=== PATIENT | male | born 1955 | race Caucasian/White ===

== ENCOUNTER 2017-03-16 08:47 | Inpatient (IN) | payer OTHER ==
[~2017-03-16] VITALS: Ht 198.1 cm; Wt 93.9 kg
--- NOTE | 2017-03-16 09:15 | DIAGNOSTIC IMAGING REPORT ---
HEAD WITHOUT CONTRAST (CT) CT DOSE: 1241.21 mGy.cm HISTORY: Mental status change stroke TECHNIQUE: Multiaxial CT images of the head were performed without the use of intravenous contrast. A dose lowering technique was utilized adhering to the principles of ALARA. Comparison: None. Findings: The paranasal sinuses and mastoid air cells are clear. The calvarium and skull base are intact. The ventricles and sulci are within normal limits. There is no mass, hematoma, midline shift, or acute infarct. Impression: No acute intracranial abnormality. The above report was generated using voice recognition software. It may contain grammatical, syntax or spelling errors. Electronically signed by: Alessandro Lopez M.D. 03/16/2017 9:13 AM Dictated Date/Time: 03/16/2017 9:12 AM
--- NOTE | 2017-03-16 09:17 | DIAGNOSTIC IMAGING REPORT ---
CERVICAL SPINE W/O CT DOSE: HISTORY: Trauma unresponsive found on ground TECHNIQUE: Multiaxial CT images of the cervical spine were performed and reformatted in the sagittal and coronal plane without the use of contrast. A dose lowering technique was utilized adhering to the principles of ALARA. COMPARISON: None. FINDINGS: Degenerative disc change throughout the entire cervical region. Vertebral body stature is normal. Degenerative change of the C1-C2 complex. No acute compression deformity. Posterior elements are intact. IMPRESSION: Degenerative change. No acute process. The above report was generated using voice recognition software. It may contain grammatical, syntax or spelling errors. Electronically signed by: Alessandro Lopez M.D. 03/16/2017 9:16 AM Dictated Date/Time: 03/16/2017 9:14 AM
--- NOTE | 2017-03-16 09:24 | DIAGNOSTIC IMAGING REPORT ---
CHEST ONE VIEW PORTABLE HISTORY: 61 years-old Male STROKE ALERT acute stroke-like symptoms COMPARISON: None available TECHNIQUE: Portable upright AP view of the chest FINDINGS: Cardiac silhouette is mildly enlarged. Pulmonary vascular congestion without overt pulmonary edema. No pneumothorax, pleural effusion, focal airspace consolidation or overt pulmonary edema. Hazy left basilar opacities suggest atelectasis. Advanced degenerative changes of the right shoulder. Bones are grossly intact. IMPRESSION: Cardiomegaly and pulmonary vascular congestion without acute cardiopulmonary process. The above report was generated using voice recognition software. It may contain grammatical, syntax or spelling errors. Electronically signed by: Celestine Hugo M.D. 03/16/2017 9:23 AM Dictated Date/Time: 03/16/2017 9:21 AM
[2017-03-16] MEDS ORDERED: SET 2260-0500 IV ONE (09:30)
[2017-03-16] MEDS ORDERED: ALTEPLASE IV SCH ×2 (09:30)
[2017-03-16] MEDS ORDERED: RECOMBINANT IV SCH ×2 (09:30)
[2017-03-16 09:39] LABS: BASO % 0.3 %; BASO ABS # 0.02 K/uL (0-0.2); COMPLETE YES; EOS % 3.3 %; IG% 0.3 %; LYMPH % 21.1 %; LYMPH ABS # 1.58 K/uL (1.2-3.4); MEAN CELL VOLUME 80.8 fL (80-100); MEAN CORPUSCULAR HEMOGLOBIN 27.4 pg (25-34); MEAN CORPUSCULAR HGB CONC 33.9 g/dl (32-36); MEAN PLATELET VOLUME 9.9 fL (7.4-10.4); MONO % 6.6 %; NEUT % 68.4 %; PLATELET COUNT 264 K/uL (130-400); RED BLOOD COUNT 5.69 M/uL (4.7-6.1); WHITE BLOOD COUNT 7.48 K/uL (4.8-10.8)
[2017-03-16 09:48] LABS: PROTHROMBIN TIME (PATIENT) 10.5 SECONDS (9.0-12.0)
[2017-03-16 09:54] LABS: ARTERIAL BLD GAS O2 SATURATION 95.9 % (90-95); ARTERIAL BLOOD GAS BASE EXCESS 1.2 mEq/L (-9-1.8); ARTERIAL BLOOD GAS HCO3 25 mmol/L (19-24); ARTERIAL BLOOD GAS PO2 78 mm/Hg (80-95); ARTERIAL BLOOD GAS pH 7.44 (7.35-7.45)
[2017-03-16 10:00] LABS: ALLEN TEST POS (POS); O2 ADMINISTRATION ROOM AIR
[2017-03-16 10:03] LABS: BLOOD UREA NITROGEN 14 mg/dl (7-18); BUN/CREATININE RATIO 14.7 (10-20); CARBON DIOXIDE 27 mmol/L (21-32); CHLORIDE 105 mmol/L (98-107); CREATININE 0.97 mg/dl (0.60-1.40); GLUCOSE 102 mg/dl (70-99); POTASSIUM 4.4 mmol/L (3.5-5.1); SODIUM 137 mmol/L (136-145)
[2017-03-16 10:08] LABS: CKMB/CK RATIO 1.9 (0-3.0)
[2017-03-16] MEDS ORDERED: IBUP-1050 PO (10:23)
[2017-03-16] MEDS ORDERED: ACET-1311 PO (10:23)
[2017-03-16] MEDS ORDERED: VNTHFA/IN INH (10:23)
--- NOTE | 2017-03-16 10:28 | EMERGENCY ROOM VISIT NOTE ---
History Report prepared by Susi: Tegan Pizano Under the Supervision of: Dr. Guerrero Larson M.D. First contact with patient: 08:50 Chief Complaint: STROKE SYMPTOMS Stated Complaint: STROKE ALERT History of Present Illness The patient is a 61 year old male who presents to the Emergency Room with a persistent altered mental status that began several hours ago. Per EMS the patient was last known well at 0600 this morning. EMS reports that the patient was found unresponsive and altered at work this morning. EMS states that they were summoned to the area and the patient was brought to the emergency department. EMS states that the patient periodically awakens in a startled state. They note that the patient tried talking some. EMS provides no further information. The history is limited secondary to the patient's altered mental status. Source of History: patient History Limited By: AMS Onset: several hours ago Position: other (global) Quality: other (altered mental status) Timing: other (persistent) Review of Systems The history and ROS limited secondary to the patient's altered mental status. Past Medical & Surgical Medical Problems: (1) Cardiac arrest (2) LOC (loss of consciousness) (3) Stroke (4) Stroke Family History No pertinent family history stated. Social History Smoking Status: Unknown if Ever Smoked Marital Status: single Housing Status: lives with family Occupation Status: employed Current/Historical Medications Scheduled PRN Acetaminophen (Tylenol), 650 MG PO UD PRN for Pain Albuterol Hfa (Ventolin Hfa), 2-4 PUFFS INH Q6H PRN for SOB/Wheezing Ibuprofen (Advil), 1 DOSE PO UD PRN for Pain Allergies Coded Allergies: No Known Allergies (Unverified , 03/16/17) Physical Exam Vital Signs Date Time Temp Pulse Resp B/P (MAP) Pulse Ox O2 Delivery O2 Flow Rate FiO2 03/16/17 11:38 63 20 159/83 98 Room Air 03/16/17 11:07 56 20 166/82 97 Room Air 03/16/17 10:44 52 16 140/83 96 Room Air 03/16/17 10:20 55 16 161/84 96 03/16/17 09:53 56 16 150/89 95 Room Air 03/16/17 09:40 58 16 136/85 95 03/16/17 09:36 58 18 149/85 96 Room Air 10/23/17 09:31 58 16 163/86 95 Room Air 03/16/17 09:24 58 18 145/85 95 Room Air 03/16/17 09:17 Room Air 03/16/17 09:07 70 03/16/17 08:58 68 16 164/90 95 Room Air Physical Exam GENERAL: Awake, periodically looking around the room, follows some commands. HEENT: No acute trauma, normocephalic atraumatic, mucous membranes moist, no nasal congestion, no scleral icterus. NECK: No stridor, no adenopathy, no meningismus, trachea is midline. LUNGS: No dyspnea. Clear to auscultation and equal bilaterally. No wheeze, no rhonchi. HEART: Regular rate and rhythm. No murmurs, rubs, gallops appreciated. ABDOMEN: Soft, nontender, bowel sounds positive, no masses appreciated, no peritonitis. BACK: No midline tenderness, no CVA tenderness EXTREMITIES: Moderate right shoulder tenderness to palpation and limited range of motion. Normal motion all extremities, no cyanosis, no edema. NEUROLOGIC: Awake, periodically looking around the room, follows some commands. Weakly grabs with left hand, left facial droop, cannot move left arm, not speaking SKIN: No rash, no jaundice, no diaphoresis. Medical Decision & Procedures ER Provider Diagnostic Interpretation: Radiology results and stated below per my review and radiologist interpretation: CHEST ONE VIEW PORTABLE HISTORY: 61 years-old Male STROKE ALERT acute stroke-like symptoms COMPARISON: None available TECHNIQUE: Portable upright AP view of the chest FINDINGS: Cardiac silhouette is mildly enlarged. Pulmonary vascular congestion without overt pulmonary edema. No pneumothorax, pleural effusion, focal airspace consolidation or overt pulmonary edema. Hazy left basilar opacities suggest atelectasis. Advanced degenerative changes of the right shoulder. Bones are grossly intact. IMPRESSION: Cardiomegaly and pulmonary vascular congestion without acute cardiopulmonary process. The above report was generated using voice recognition software. It may contain grammatical, syntax or spelling errors. Electronically signed by: Celestine Hugo M.D. 03/16/2017 9:23 AM Dictated Date/Time: 03/16/2017 9:21 AM CERVICAL SPINE W/O CT DOSE: HISTORY: Trauma unresponsive found on ground TECHNIQUE: Multiaxial CT images of the cervical spine were performed and reformatted in the sagittal and coronal plane without the use of contrast. A dose lowering technique was utilized adhering to the principles of ALARA. COMPARISON: None. FINDINGS: Degenerative disc change throughout the entire cervical region. Vertebral body stature is normal. Degenerative change of the C1-C2 complex. No acute compression deformity. Posterior elements are intact. IMPRESSION: Degenerative change. No acute process. The above report was generated using voice recognition software. It may contain grammatical, syntax or spelling errors. Electronically signed by: Alessandro Lopez M.D. 03/16/2017 9:16 AM Dictated Date/Time: 03/16/2017 9:14 AM (CHEST) THORAX WITH CT DOSE: HISTORY: Trauma. Pain. fall, ams, unknown trauma TECHNIQUE: Multiaxial CT images of the chest were performed following the intravenous administration of contrast. A dose lowering technique was utilized adhering to the principles of ALARA. COMPARISON: None. FINDINGS: Mild nonspecific interstitial prominence. No focal infiltrate. Thoracic aorta is normal in course and caliber. Old fracture left second rib. No acute bony abnormality. Mild dependent basilar atelectasis. IMPRESSION: No significant abnormality identified within the chest. Mild chronic interstitial change. Old healed fracture left second rib. The above report was generated using voice recognition software. It may contain grammatical, syntax or spelling errors. Electronically signed by: Alessandro Lopez M.D. 03/16/2017 10:47 AM Dictated Date/Time: 03/16/2017 10:42 AM HEAD ANGIO WITH CONTRAST HISTORY: 61 years-old Male presents with acute left-sided weakness and acute strokelike symptoms. COMPARISON: CT head 03/16/2017 TECHNIQUE: CTA of the head was obtained following the intravenous administration of 120 mL Optiray 320. 3-D coronal and sagittal MIPS were obtained from the axial data set and were submitted for review. All measurements were made according NASCET criteria. A dose lowering technique was used consistent with the principals of ALARA. FINDINGS: The imaged bilateral internal carotid, middle cerebral, anterior cerebral, and anterior communicating arteries are patent. Imaged bilateral vertebral arteries, basilar artery and imaged posterior cerebral arteries are patent. No high-grade stenosis, aneurysm, proximal branch occlusion or dissection. The imaged cerebral venous sinuses also appear patent. No abnormal intra-axial or extra-axial enhancement identified. Mild to moderate mucosal thickening of the maxillary, ethmoid and inferior frontal sinuses. Mastoid air cells and middle ear cavities are clear. No calvarial fracture. IMPRESSION: Unremarkable CTA of the head without high-grade stenosis, proximal branch occlusion, aneurysm or dissection identified. The above report was generated using voice recognition software. It may contain grammatical, syntax or spelling errors. Electronically signed by: Celestine Hugo M.D. 03/16/2017 10:46 AM Dictated Date/Time: 03/16/2017 10:40 AM NECK ANGIO WITH CONTRAST HISTORY: Mental status change weakness TECHNIQUE: Multiaxial CT images of the neck were performed following the intravenous administration of contrast to evaluate the major cervical vessels. Maximum intensity projection images were also obtained. All measurements were calculated based on NASCET criteria. A dose lowering technique was utilized adhering to the principles of ALARA. COMPARISON STUDY: None. FINDINGS: The aortic arch and proximal great vessels are widely patent. There is no significant stenosis, occlusion, or dissection identified within the bilateral common carotid, internal carotid, or vertebral arteries. Mild scattered plaque dimension bilaterally IMPRESSION: No significant stenosis, occlusion, or dissection identified within the carotid or vertebral arteries. Mild scattered plaque formation bilaterally The above report was generated using voice recognition software. It may contain grammatical, syntax or spelling errors. Electronically signed by: Alessandro Lopez M.D. 03/16/2017 10:39 AM Dictated Date/Time: 03/16/2017 10:34 AM The status of this report is Signed. Draft = Not yet reviewed or approved by Radiologist. Signed = Reviewed and approved by Radiologist. ABD/PELVIS IV CONTRAST ONLY HISTORY: 61 years-old Male fall, ams, unknown trauma acute left-sided weakness with acute strokelike symptoms. Unknown history of trauma. COMPARISON: CT chest of same day TECHNIQUE: Multiple axial CT images of the abdomen and pelvis were obtained following the intravenous administration of 120 mL Optiray 320. A dose lowering technique was used consistent with the principals of ALARA. FINDINGS: Studies mildly limited secondary to be beam hardening artifact from placement of patient's arms. Dependent groundglass opacities suggest atelectasis. No pneumoperitoneum identified. Imaged inferior cardiac chambers are moderately enlarged. The liver, spleen, pancreas, and adrenal glands are within normal limits. There are a few small gallstones seen within the fundal gallbladder lumen. No CT evidence of cholecystitis. There is a 3 mm nonobstructing calculus of the interpolar left kidney with 4 mm nonobstructing calculus present within the interpolar right kidney. Cortical thinning of the inferior pole left kidney suggests sequela of scarring. Probable bilateral renal cysts, largest of which measures 1.3 cm within the interpolar right kidney. Ureters and urinary bladder are unremarkable. Prostate is moderately enlarged with central coarse prostatic calcifications. The abdominal aorta is normal in both course and caliber. No bulky retroperitoneal adenopathy. No bowel obstruction or focal bowel wall thickening. No pneumatosis. The large bowel and appendix also appear normal. Soft tissues are unremarkable. Sclerotic foci of the iliac bones measuring up to 7 mm suggests bone islands. Moderate facet arthrosis of the lower lumbar spine with multilevel spondylitic changes. IMPRESSION: 1. No acute intra-abdominal or intrapelvic abnormality identified. No evidence of posttraumatic solid organ injury. 2. Cholelithiasis without CT evidence of acute cholecystitis. 3. Bilateral nonobstructing renal calculi. The above report was generated using voice recognition software. It may contain grammatical, syntax or spelling errors. Electronically signed by: Celestine Hugo M.D. 03/16/2017 10:52 AM Dictated Date/Time: 03/16/2017 10:46 AM HEAD WITHOUT CONTRAST (CT) CT DOSE: 1241.21 mGy.cm HISTORY: Mental status change stroke TECHNIQUE: Multiaxial CT images of the head were performed without the use of intravenous contrast. A dose lowering technique was utilized adhering to the principles of ALARA. Comparison: None. Findings: The paranasal sinuses and mastoid air cells are clear. The calvarium and skull base are intact. The ventricles and sulci are within normal limits. There is no mass, hematoma, midline shift, or acute infarct. Impression: No acute intracranial abnormality. The above report was generated using voice recognition software. It may contain grammatical, syntax or spelling errors. Electronically signed by: Alessandro Lopez M.D. 03/16/2017 9:13 AM Dictated Date/Time: 03/16/2017 9:12 AM RIGHT SHOULDER 2 VIEWS HISTORY: right shoulder pain COMPARISON: None. FINDINGS: There is no fracture or dislocation. Soft tissues are unremarkable. The right clavicle is intact. Mild degenerative changes at the acromioclavicular and glenohumeral joints. IMPRESSION: Mild osteoarthritis of the right shoulder. No fracture or dislocation. Electronically signed by: Adan Richey M.D. 03/16/2017 11:51 AM Dictated Date/Time: 03/16/2017 11:49 AM Laboratory Results 03/16/17 09:11 Red Blood Count 5.69, Mean Corpuscular Volume 80.8, Mean Corpuscular Hemoglobin 27.4, Mean Corpuscular Hemoglobin Concent 33.9, Mean Platelet Volume 9.9, Neutrophils (%) (Auto) 68.4, Lymphocytes (%) (Auto) 21.1, Monocytes (%) (Auto) 6.6, Eosinophils (%) (Auto) 3.3, Basophils (%) (Auto) 0.3, Neutrophils # (Auto) 5.12, Lymphocytes # (Auto) 1.58, Monocytes # (Auto) 0.49, Eosinophils # (Auto) 0.25, Basophils # (Auto) 0.02 03/16/17 09:11 Test 03/16/17 09:11 03/16/17 09:39 03/16/17 11:00 White Blood Count 7.48 K/uL (4.8-10.8) Red Blood Count 5.69 M/uL (4.7-6.1) Hemoglobin 15.6 g/dL (14.0-18.0) Hematocrit 46.0 % (42-52) Mean Corpuscular Volume 80.8 fL (80-100) Mean Corpuscular Hemoglobin 27.4 pg (25-34) Mean Corpuscular Hemoglobin Concent 33.9 g/dl (32-36) Platelet Count 264 K/uL (130-400) Mean Platelet Volume 9.9 fL (7.4-10.4) Neutrophils (%) (Auto) 68.4 % Lymphocytes (%) (Auto) 21.1 % Monocytes (%) (Auto) 6.6 % Eosinophils (%) (Auto) 3.3 % Basophils (%) (Auto) 0.3 % Neutrophils # (Auto) 5.12 K/uL (1.4-6.5) Lymphocytes # (Auto) 1.58 K/uL (1.2-3.4) Monocytes # (Auto) 0.49 K/uL (0.11-0.59) Eosinophils # (Auto) 0.25 K/uL (0-0.5) Basophils # (Auto) 0.02 K/uL (0-0.2) RDW Standard Deviation 44.4 fL (36.4-46.3) RDW Coefficient of Variation 15.2 % (11.5-14.5) Immature Granulocyte % (Auto) 0.3 % Immature Granulocyte # (Auto) 0.02 K/uL (0.00-0.02) Prothrombin Time 10.5 SECONDS (9.0-12.0) Prothromb Time International Ratio 1.0 (0.9-1.1) Activated Partial Thromboplast Time 27.1 SECONDS (21.0-31.0) Partial Thromboplastin Ratio 1.0 Anion Gap 5.0 mmol/L (3-11) Estimated GFR () 95.9 Estimated GFR (Non- 82.7 BUN/Creatinine Ratio 14.7 (10-20) Calcium Level 9.0 mg/dl (8.5-10.1) Magnesium Level 2.2 mg/dl (1.8-2.4) Total Creatine Kinase 88 U/L (39-308) Creatine Kinase MB 1.7 ng/ml (0.5-3.6) Creatine Kinase MB Ratio 1.9 (0-3.0) Troponin I 0.019 ng/ml (0-0.045) Arterial Blood pH 7.44 (7.35-7.45) Arterial Blood Partial Pressure CO2 38 mmHg (35-46) Arterial Blood Partial Pressure O2 78 mm/Hg (80-95) Arterial Blood HCO3 25 mmol/L (19-24) Arterial Blood Oxygen Saturation 95.9 % (90-95) Arterial Blood Base Excess 1.2 mEq/L (-9-1.8) Arterial Blood Gas Delivery ROOM AIR Aditya Test POS (POS) Carboxyhemoglobin 0.0 % [facility] Urine Color YELLOW Urine Appearance CLEAR (CLEAR) Urine pH 5.5 (4.5-7.5) Urine Specific [place] > 1.045 (1.000-1.030) Urine Protein NEG (NEG) Urine Glucose (UA) NEG (NEG) Urine Ketones NEG (NEG) Urine Occult Blood NEG (NEG) Urine Nitrite NEG (NEG) Urine Bilirubin NEG (NEG) Urine Urobilinogen NEG (NEG) Urine Leukocyte Esterase NEG (NEG) Urine WBC (Auto) 1-5 /hpf (0-5) Urine RBC (Auto) 5-10 /hpf (0-4) Urine Hyaline Casts (Auto) 1-5 /lpf (0-5) Urine Epithelial Cells (Auto) >30 /lpf (0-5) Urine Bacteria (Auto) NEG (NEG) Urine Renal Epithelial Cells 0-5 /lpf (0-5) Urine Mucus PRESENT (NONE PRSENT) Urine Opiates Screen NEG (NEG) Urine Methadone, Qualitative NEG (NEG) Urine Barbiturates NEG (NEG) Urine Phencyclidine (PCP) Level NEG (NEG) Ur Amphetamine/Methamphetamine NEG (NEG) MDMA (Ecstasy) Screen NEG (NEG) Urine Benzodiazepines Screen NEG (NEG) Urine Cocaine Metabolite NEG (NEG) Urine Marijuana (THC) NEG (NEG) Laboratory results as reviewed by me. ECG Indication: altered mental status Rate (beats per minute): 57 Rhythm: sinus bradycardia Findings: no acute ischemic change, no ectopy ED Course 0942: A stroke alert was initiated at this time. 0852: The patient was evaluated in room A1. A complete history and physical exam was performed. He was taken over to Radiology for a CT scan. 0910: I spoke to the patient's at this time and she notes that the patient the patient had a stroke two years ago where he was treated at [facility]. She states that the patient presented with similar symptoms at that time as today. 0913: I discussed the patient's case with Dr. Garcia, [facility]. He instructed me to have TPA mixed and that he will evaluate the patient via Telestroke. 0916: TPA is currently being mixed by pharmacy. 0932: I reevaluated the patient and Dr. Garcia is currently evaluated him via Telestroke. 0950: After discussion with Dr. Garcia, [facility] and the patient's family, we decided against TPA. This is due to the unknown time of onset and abnormal presentation. Dr. Garcia requested a CTA of the patient's neck, head, and chest and a CT of the patient's abdomen and pelvis due to unknown possibility of trauma. 1111: I reevaluated the patient and he is resting. The patient's family states that they talked to the patient's coworkers and states that there was no evidence of trauma or equipment around him when he was found on the ground. I discussed the exam findings with the patient's family and I discussed the treatment plan. They verbalized complete understanding and agreement. The patient will be evaluated for further treatment. 1121: I discussed the patient's case with Reyes Ortez. He is going to evaluate the patient for further treatment. 1126: I spoke to the patient's and she states that she spoke to the patient 's cousin who is a first line production supervisor and notes that the patient had no pulse for several minutes and notes that CPR was done prior to the other EMS showing up on the scene. Medical Decision Differential: Toxicological, Infectious, Stroke, SAH, Trauma, Electrolyte Abnormality, Hypoglycemia, Alcohol Intoxication, Drug Intoxication, Cardiac Abnormality, Sepsis, Meningitis/Encephalitis, Trauma, Excited Delirium, Serotonin Syndrome, Psychiatric, amongst other pathologies entertained. 61 yr old male arrives for evaluation of AMS with left sided weakness. Last seen normal at 6am (initially reported 7a but revised after arrival). Patient with quite unusual story with possible CPR due to pulselessness, along with report of ASA taken even though is adamant this was not case, as well as possible stroke/TIA several years ago without any daily meds. Patient on exam is somewhat encephalopathic without evidence meningitis. Periodically sitting up rapidly in bed before laying back. Clearly with some left face/arm weakness but rest of exam is quite variable. TTP over right shoulder though no swelling nor bruising. CT head negative, CT neck done given AMS and found on ground, but this is negative as well. Without clear evidence of trauma I feel that removing collar reasonable, along with fact helps with exam. No TTP over midline neck nor step- offs nor bruising noted. EKG normal. Trop wnl. CXR clear. Vitals stable. Evaluated by Dr Garcia who initially given 7a onset felt mixing TPA indicated but with arriving, the very variable exam and fact he is now outside of window, holding off on TPA reasonable. I discussed this decision at length with , daughters and friends and they are agreeable that if there is increasing change bleeding/worsening then they would not want TPA given either. Exam continues to be abnormal but unclear the cause. Drug negative, abg negative, carboxy negative, etoh negative. We ahead with CTA Neck/Head which is negative. As doing IV contrast will go ahead with c/a/p given AMS and inability to get straight story or exam. Fortunately these are negative. Shoulder imaging without fracture/dislocation. Does not appear septic joint and no other evidence of infection. Will need further monitoring and work-up of this though I do not feel it is cause of his acute AMS and left sided weakness. I suspect this is a stroke but with his multiple other abnormalities will clearly need cardiac rule out and further evaluations. Stable and breathing comfortably but still altered at time of hospitalist evaluation. Medication Reconcilliation Current Medication List: was personally reviewed by me Blood Pressure Screening Patient's blood pressure: Elevated blood pressure (MIldly elevated on arrival and will be monitored by hospitalist) Consults Time Called: 903 Consulting Physician: [facility] Returned Call: [phone] I discussed the patient's case with [facility]. He instructed me to have TPA mixed and that he will evaluate the patient via Telestroke. Additional Consults: Time Called: 1110 Consulted Physician: Reyes Ortez Returned Call: [phone] Additional Comments: I discussed the patient's case with Reyes Ortez. He is going to evaluate the patient for further treatment. Impression Primary Impression: Left-sided weakness Additional Impressions: Encephalopathy Altered mental status Critical Care I have personally spent greater than 130 minutes of critical care time in the direct management of this patient. This was a life/limb threatening event. This includes time spent evaluating patient, direct bedside care, chart review, placing orders, interpretation of diagnostic studies, discussion with consultants, patient, and family members, as well as other required patient management activities. This 130 minutes is in excess of all separately billable procedures. Scribe Attestation The scribe's documentation has been prepared under my direction and personally reviewed by me in its entirety. I confirm that the note above accurately reflects all work, treatment, procedures, and medical decision making performed by me. Departure Information Dispostion Being Evaluated By Hospitalist Referrals No Doctor, Assigned Stroke History Time Last Known Well 0600 Stroke t-PA Criteria Reviewed Does NOT meet criteria for t-PA Reason t-PA Not Given Treatment provided - N/A (because unknown time and abnormal presentation) Problem Qualifiers
--- NOTE | 2017-03-16 10:40 | DIAGNOSTIC IMAGING REPORT ---
NECK ANGIO WITH CONTRAST HISTORY: Mental status change weakness TECHNIQUE: Multiaxial CT images of the neck were performed following the intravenous administration of contrast to evaluate the major cervical vessels. Maximum intensity projection images were also obtained. All measurements were calculated based on NASCET criteria. A dose lowering technique was utilized adhering to the principles of ALARA. COMPARISON STUDY: None. FINDINGS: The aortic arch and proximal great vessels are widely patent. There is no significant stenosis, occlusion, or dissection identified within the bilateral common carotid, internal carotid, or vertebral arteries. Mild scattered plaque dimension bilaterally IMPRESSION: No significant stenosis, occlusion, or dissection identified within the carotid or vertebral arteries. Mild scattered plaque formation bilaterally The above report was generated using voice recognition software. It may contain grammatical, syntax or spelling errors. Electronically signed by: Alessandro Lopez M.D. 03/16/2017 10:39 AM Dictated Date/Time: 03/16/2017 10:34 AM
[2017-03-16] MEDS ORDERED: OPTIRAY 320 IV PRN (10:45)
--- NOTE | 2017-03-16 10:47 | DIAGNOSTIC IMAGING REPORT ---
HEAD ANGIO WITH CONTRAST HISTORY: 61 years-old Male presents with acute left-sided weakness and acute strokelike symptoms. COMPARISON: CT head 03/16/2017 TECHNIQUE: CTA of the head was obtained following the intravenous administration of 120 mL Optiray 320. 3-D coronal and sagittal MIPS were obtained from the axial data set and were submitted for review. All measurements were made according NASCET criteria. A dose lowering technique was used consistent with the principals of LEO. FINDINGS: The imaged bilateral internal carotid, middle cerebral, anterior cerebral, and anterior communicating arteries are patent. Imaged bilateral vertebral arteries, basilar artery and imaged posterior cerebral arteries are patent. No high-grade stenosis, aneurysm, proximal branch occlusion or dissection. The imaged cerebral venous sinuses also appear patent. No abnormal intra-axial or extra-axial enhancement identified. Mild to moderate mucosal thickening of the maxillary, ethmoid and inferior frontal sinuses. Mastoid air cells and middle ear cavities are clear. No calvarial fracture. IMPRESSION: Unremarkable CTA of the head without high-grade stenosis, proximal branch occlusion, aneurysm or dissection identified. The above report was generated using voice recognition software. It may contain grammatical, syntax or spelling errors. Electronically signed by: Celestine Hugo M.D. 03/16/2017 10:46 AM Dictated Date/Time: 03/16/2017 10:40 AM
--- NOTE | 2017-03-16 10:48 | DIAGNOSTIC IMAGING REPORT ---
(CHEST) THORAX WITH CT DOSE: HISTORY: Trauma. Pain. fall, ams, unknown trauma TECHNIQUE: Multiaxial CT images of the chest were performed following the intravenous administration of contrast. A dose lowering technique was utilized adhering to the principles of ALARA. COMPARISON: None. FINDINGS: Mild nonspecific interstitial prominence. No focal infiltrate. Thoracic aorta is normal in course and caliber. Old fracture left second rib. No acute bony abnormality. Mild dependent basilar atelectasis. IMPRESSION: No significant abnormality identified within the chest. Mild chronic interstitial change. Old healed fracture left second rib. The above report was generated using voice recognition software. It may contain grammatical, syntax or spelling errors. Electronically signed by: Alessandro Lopez M.D. 03/16/2017 10:47 AM Dictated Date/Time: 03/16/2017 10:42 AM
--- NOTE | 2017-03-16 10:54 | DIAGNOSTIC IMAGING REPORT ---
ABD/PELVIS IV CONTRAST ONLY HISTORY: 61 years-old Male fall, ams, unknown trauma acute left-sided weakness with acute strokelike symptoms. Unknown history of trauma. COMPARISON: CT chest of same day TECHNIQUE: Multiple axial CT images of the abdomen and pelvis were obtained following the intravenous administration of 120 mL Optiray 320. A dose lowering technique was used consistent with the principals of LEO. FINDINGS: Studies mildly limited secondary to be beam hardening artifact from placement of patient's arms. Dependent groundglass opacities suggest atelectasis. No pneumoperitoneum identified. Imaged inferior cardiac chambers are moderately enlarged. The liver, spleen, pancreas, and adrenal glands are within normal limits. There are a few small gallstones seen within the fundal gallbladder lumen. No CT evidence of cholecystitis. There is a 3 mm nonobstructing calculus of the interpolar left kidney with 4 mm nonobstructing calculus present within the interpolar right kidney. Cortical thinning of the inferior pole left kidney suggests sequela of scarring. Probable bilateral renal cysts, largest of which measures 1.3 cm within the interpolar right kidney. Ureters and urinary bladder are unremarkable. Prostate is moderately enlarged with central coarse prostatic calcifications. The abdominal aorta is normal in both course and caliber. No bulky retroperitoneal adenopathy. No bowel obstruction or focal bowel wall thickening. No pneumatosis. The large bowel and appendix also appear normal. Soft tissues are unremarkable. Sclerotic foci of the iliac bones measuring up to 7 mm suggests bone islands. Moderate facet arthrosis of the lower lumbar spine with multilevel spondylitic changes. IMPRESSION: 1. No acute intra-abdominal or intrapelvic abnormality identified. No evidence of posttraumatic solid organ injury. 2. Cholelithiasis without CT evidence of acute cholecystitis. 3. Bilateral nonobstructing renal calculi. The above report was generated using voice recognition software. It may contain grammatical, syntax or spelling errors. Electronically signed by: Celestine Hugo M.D. 03/16/2017 10:52 AM Dictated Date/Time: 03/16/2017 10:46 AM
[2017-03-16 11:42] LABS: BENZODIAZEPINE, URINE NEG (NEG); COCAINE,URINE NEG (NEG); PHENCYCLIDINE, URINE NEG (NEG)
--- NOTE | 2017-03-16 11:52 | DIAGNOSTIC IMAGING REPORT ---
RIGHT SHOULDER 2 VIEWS HISTORY: right shoulder pain COMPARISON: None. FINDINGS: There is no fracture or dislocation. Soft tissues are unremarkable. The right clavicle is intact. Mild degenerative changes at the acromioclavicular and glenohumeral joints. IMPRESSION: Mild osteoarthritis of the right shoulder. No fracture or dislocation. Electronically signed by: Adan Richey M.D. 03/16/2017 11:51 AM Dictated Date/Time: 03/16/2017 11:49 AM
[2017-03-16] MEDS ORDERED: ALBUTEROL HFA 8 GM INHALER INH PRN (12:00)
[2017-03-16] MEDS ORDERED: ALBUTEROL 0.083% NEBU SOLN 3 ML VIAL INH PRN (12:00)
[2017-03-16] MEDS ORDERED: ASPIRIN 300 MG SUPP PR SCH (12:30)
[2017-03-16 12:40] LABS: URINE APPEARANCE CLEAR (CLEAR); URINE BILIRUBIN NEG (NEG); URINE COLOR YELLOW; URINE EPITHELIAL CELL AUTO >30 /lpf (0-5); URINE NITRITE NEG (NEG); URINE PH 5.5 (4.5-7.5); URINE SPECIFIC GRAVITY > 1.045 (1.000-1.030); UROBILINOGEN NEG (NEG); ZZURINE CULT IF INDIC CATH NO
[2017-03-16 12:41] LABS: MANUAL MICROSCOPIC REQUIRED? NO; REVIEW REQ? YES
--- NOTE | 2017-03-16 12:44 | HISTORY & PHYSICAL EXAMINATION ---
DATE OF ADMISSION: 03/16/2017 PRIMARY CARE PHYSICIAN: ____. CHIEF COMPLAINT: Was found unresponsive at around 6:30-8:30 this morning. DICTATION ENDS HERE. Cancelled Dr Fernando FONSECA
[2017-03-16 12:53] LABS: URINE MUCUS PRESENT (NONE PRSENT)
--- NOTE | 2017-03-16 13:23 | HISTORY & PHYSICAL EXAMINATION ---
DATE OF ADMISSION: 03/16/2017 PRIMARY CARE PHYSICIAN: Dr. Renner. CHIEF COMPLAINT: Found unresponsive at work place this morning around 06:30 a.m. HISTORY OF PRESENT COMPLAINT: He is a 61-year-old male with significant past medical history of diastolic dysfunction, on no medications; history of COPD, seems to be controlled; and esophageal reflux. He apparently went to work this morning. He does not take any medications except aspirin occasionally and at workplace, he was noted to be unresponsive. The history is not totally clear from the patient. He mentioned that he had a fall and then he lost consciousness and information from the EMS record , the patient was unconscious and somebody did check the pulse for him and at that time, he was noted to be pulseless, not breathing and he got 2 chest compressions. With that, he woke up. EMS en route found him to be in and out of consciousness, at times talking, and at times not talking, but when he was brought to the Emergency Room, he was very lethargic and weak. He was still conversant and he was noted to have left-sided weakness without any facial asymmetry. He was hemodynamically stable and most of the investigations including CAT scan of the head, CT of the neck, CT of the head, CAT scan of the chest, CT of the abdomen and pelvis, EKG, and blood work, everything came out to be unremarkable, but given the history of ongoing drowsiness and fluctuations in the level of consciousness and left-sided weakness, he was admitted to telemetry unit. Before that, the [facility] consulted for probable stroke and it was decided that the patient is not a candidate for TPA at this time. PAST MEDICAL HISTORY: Significant for diastolic dysfunction, not been taking any medications; history of COPD, seems to be mild, has been on Flonase and Flovent; esophageal reflux and chronic rhinitis. PAST SURGICAL HISTORY: Nothing significant. FAMILY HISTORY: Mother has some endocrine disorder and hypothyroidism and father has Alzheimer disease. SOCIAL HISTORY: He is . He lives with his . He does not smoke. He drinks occasionally. ALLERGIES: NKDA. MEDICATIONS: He has been on Flovent HFA 2 puffs by mouth 2 times a day, Flonase and aspirin 81 mg daily. REVIEW OF SYSTEMS: Other systemic review is unremarkable except those mentioned in history of present complaint. HEENT-no significant abnormalities RESPIRATORY: He does not have any fever, chills or rigors. CARDIOVASCULAR: No chest pain, shortness of breath or palpitation. GASTROINTESTINAL: No abdominal pain, nausea, or vomiting. No recent weight gain. DERMATOLOGIC: Does not have any rash. LYMPHATICS: Does not have any enlargement of lymph nodes. PHYSICAL EXAMINATION: GENERAL: On examination in the Emergency Room, he was not having any acute distress, but he was very drowsy and lethargic. VITAL SIGNS: Pulse was 63, blood pressure 159/83, and saturation 98% on room air. HEENT: Unremarkable. NECK: Supple. No JVD. No bruit. There is no facial asymmetry. CHEST: Clear to auscultation bilaterally with decreased breath sounds. HEART: S1 and S2 regular. ABDOMEN: Soft, benign, and nontender. No organomegaly. Bowel sounds present. EXTREMITIES: Negative for any edema. MUSCULOSKELETAL: Examination of the musculoskeletal system did show tenderness involving the right shoulder area, but no other acute joint process. CENTRAL NERVOUS SYSTEM: He is alert and awake. He is very drowsy. Talking slowly and taking some time. No facial asymmetry. He does have some weakness involving the left-sided extremities, but right side seems to be with full power. His plantar is equivocal on the left side and right side seems to be withdrawing. DTRs are difficult to elicit. LABORATORY DATA: Noted today, white count was 7.848, H&H 15.6/46.0, and platelet was 264. Blood gas was pH 7.44, pCO2 of 38, pO2 of 78 and was in room air. Saturation 95.9%. Sodium 137, potassium 4.4, chloride 105, CO2 was 27, BUN 14, creatinine 0.97, random glucose 102, magnesium 2.2, and calcium 9.0. Troponin of 0.019. PT/INR unremarkable. Toxic screen negative. Alcohol level is pending. UA examination is pending. EKG was in sinus rhythm at a rate of 57 per minute, normal axis and no significant ST-T wave changes. Chest x-ray reported as no significant abnormality around the chest. Cervical spine x-ray, degenerative changes. No acute process. CT of the chest, no significant abnormality identified within the chest. Mild chronic interstitial changes. Old healed fracture of the left second rib. CT angiography of the head, unremarkable CT of the head without high grade stenosis, proximal branch occlusion, aneurysm or dissection identified nothing. CT of the neck, no significant stenosis, occlusion or dissection identified.CT of the abdomen and pelvis, no acute intra-abdominal or intrapelvic abnormality identified. Cholelithiasis without CT evidence of acute cholecystitis. Bilateral nonobstructing renal calculi noted. CT of the head, no acute intracranial abnormality. Shoulder x-ray report is pending. IMPRESSION AND PLAN: 1. Loss of consciousness with status post fall/status post cardiac arrest. A stroke alert was called for the patient and was evaluated by [facility] neurologist. Not a candidate for TPA. Initial CAT scan, CTA of the neck, and CT of the head did not show any acute abnormality. He does have left-sided weakness on examination, but no facial asymmetry. He will be admitted to medical telemetry unit and neuro observation. The case was discussed with Dr. Waldron. We will get MRI of the head and EEG and he will be given aspirin and Plavix. A speech therapy evaluation was done as well. Down the line, PT/OT evaluation and go from there.Speech evaluation . 2. Status post cardiac arrest.The event seems to be doubtful. The initial mapping editor found him to be unresponsive with no pulses. He started chest compression and with 2 compressions, the patient woke up. So, later on, that was not continued and he is now with fluctuating level of alertness. He does not have any complaint except pain in the left shoulder. We will get serial cardiac enzymes and also echocardiogram to evaluate LV function. 3. History of diastolic dysfunction. Chest x-ray does not show any fluid overload and he does not take any medications. Again echo will be determining. 4. Chronic obstructive pulmonary disease, seems to be mild. Continue with his Flovent and Flonase and given nebulized bronchodilator as needed. 5. Esophageal reflux. Does not take any medications. Put him on Protonix. 6. Deep venous thrombosis prophylaxis with subcutaneous heparin. 7. Code status. The case was discussed with the . He will be full code. In my clinical judgment, the beneficiary meets criteria as per CMS for 2 midnight stay in the hospital. [facility]
[2017-03-16 13:48] VITALS: BP 140/86; PULSE 58; TEMP 37.1; Ht 198.1 cm; Wt 93.9 kg
[2017-03-16] MEDS ORDERED: D5NSS + 20MEQ KCL 1,000 ML IV SCH (14:00)
[2017-03-16] MEDS ORDERED: CLOPIDOGREL BISULFATE 75 MG TAB PO ONE (14:15)
[2017-03-16] MEDS ORDERED: ASPIRIN 325 MG ECTAB PO ONE (14:15)
[2017-03-16] MEDS ORDERED: PERFLUTREN LIPID MICROSPHERE (DEFINITY) IV ONE (14:40)
[2017-03-16 15:10] VITALS: BP 113/72; PULSE 58; TEMP 36.5; O2SAT 96
--- NOTE | 2017-03-16 15:25 | ECHOCARDIOGRAM REPORT ---
*NOTICE TO RECEIVING [employer] This information is strictly Confidential and protected under [place] law. [place] law prohibits you from making any further disclosure of this information unless further disclosure is expressly permitted by the written consent of the person to whom it pertains or is authorized by law. A general authorization for the release of medical or other information is not sufficient for this purpose. Hospital accepts no responsibility if the information is made available to any other person, INCLUDING THE PATIENT. Interpretation Summary * Name: PRINCE DIANE Study Date: 03/16/2017 01:59 PM BP: 159/83 mmHg * Patient Location: C.2T\S\S238\S\1 HR: 63 * : 1955 (M/d/yyyy) Gender: Male Height: 78 in * Age: 61 yrs Ethnicity: [place] Weight: 216 lb * Ordering Physician: Johnny Macias * Referring Physician: Self, Referred * Performed By: Tegan Shepaprd RDCS * * Reason For Study: STROKE ALERT * BSA: 2.3 m2 * The study was technically adequate. * -- Conclusions -- * Sinus rhythm was present during the echocardiogram. * There is mild concentric left ventricular hypertrophy. * The left ventricular wall motion is normal. * The LV Ejection Fraction = 55-60%. * There is mild mitral annular calcification. * Grade I diastolic dysfunction, (abnormal relaxation pattern). * Doppler findings do not suggest pulmonary hypertension. Procedure Details * A saline contrast injection was performed to assess for cardiac shunting. * The injection was performed through an intravenous line in the right arm. * The attending nurse who injected the saline contrast was LATASHA LEMONS RN. * A total of 20 cc of agitated saline was given. * A contrast injection of Definity was performed to improve assessment of LV function. * Contrast was injected into an intravenous site in the right arm. * One vial of Definity ultrasound contrast was diluted in normal saline to a total volume of 10 ml. A total of '2' ml of solution was administered during imaging. * Lot # [id number] of Definity utilized for procedure. * Expiration date MAR 11. * The attending nurse who injected the contrast agent was LATASHA LEMONS RN. * A complete two-dimensional transthoracic echocardiogram was performed (2D, M-mode, Doppler and color flow Doppler). Left Ventricle * The left ventricle is normal in size. * There is no LV mural thrombus. * There is mild concentric left ventricular hypertrophy. * Left ventricular systolic function is normal. * Ejection Fraction = 55-60%. * The left ventricular wall motion is normal. Right Ventricle * The right ventricle is normal size. * The right ventricular systolic function is normal as assessed by tricuspid annular plane systolic excursion (TAPSE) (normal >1.5 cm). Atria * The left atrial size is normal. * Right atrial size is normal. * There is no evidence of atrial septal defect, but resolution does not allow assessment for a patent foramen ovale. Mitral Valve * There is mild mitral annular calcification. * There is no mitral valve stenosis. * Significant mitral regurgitation is absent. Tricuspid Valve * The tricuspid valve is normal. * There is no tricuspid stenosis. * Significant tricuspid regurgitation is absent. * Doppler findings do not suggest pulmonary hypertension. Aortic Valve * The aortic valve is trileaflet. * Aortic stenosis is absent. * There is no significant aortic regurgitation. Pulmonic Valve * The pulmonary valve is not well seen, but the Doppler examination is normal without significant regurgitation or stenosis. Great Vessels * The aortic root and proximal ascending aorta are normal sized. Pericardium/Pleural * There is no pericardial effusion. Great Vessels * Normal inferior vena cava diameter and respiratory variation suggests normal central venous pressure. Left Ventricular Diastolic Function * Grade I diastolic dysfunction, (abnormal relaxation pattern). MMode 2D Measurements and Calculations IVSd 1.3 cm IVSs 1.9 cm LVIDd 4.5 cm LVIDs 3.2 cm LVPWd 1.3 cm LVPWs 1.3 cm IVS/LVPW 1.0 FS 29.0 % EDV(Teich) 94.4 ml ESV(Teich) 41.7 ml EF(Teich) 55.8 % EDV(cubed) 93.6 ml ESV(cubed) 33.5 ml EF(cubed) 64.2 % % IVS thick 40.9 % % LVPW thick 0.20 % LV mass(C)d 222.7 grams LV mass(C)dI 95.5 grams/m\S\2 LV mass(C)s 184.8 grams LV mass(C)sI 79.2 grams/m\S\2 SV(Teich) 52.7 ml SI(Teich) 22.6 ml/m\S\2 SV(cubed) 60.1 ml SI(cubed) 25.7 ml/m\S\2 Ao root diam 3.7 cm Ao root area 10.8 cm\S\2 LA dimension 2.5 cm LA/Ao 0.69 LVAd ap4 31.9 cm\S\2 LVLd ap4 8.6 cm EDV(MOD-sp4) 98.0 ml EDV(sp4-el) 100.8 ml LVAs ap4 18.4 cm\S\2 LVLs ap4 7.2 cm ESV(MOD-sp4) 39.7 ml ESV(sp4-el) 40.0 ml EF(MOD-sp4) 59.4 % EF(sp4-el) 60.3 % LVAd ap2 30.7 cm\S\2 LVLd ap2 9.1 cm EDV(MOD-sp2) 89.9 ml EDV(sp2-el) 88.5 ml LVAs ap2 17.6 cm\S\2 LVLs ap2 7.4 cm ESV(MOD-sp2) 38.6 ml ESV(sp2-el) 35.6 ml EF(MOD-sp2) 57.1 % EF(sp2-el) 59.8 % LVLd %diff 5.2 % EDV(MOD-bp) 94.7 ml LVLs %diff 2.4 % ESV(MOD-bp) 38.7 ml EF(MOD-bp) 59.1 % SV(MOD-sp4) 58.2 ml SI(MOD-sp4) 25.0 ml/m\S\2 SV(MOD-sp2) 51.4 ml SI(MOD-sp2) 22.0 ml/m\S\2 SV(MOD-bp) 56.0 ml SI(MOD-bp) 24.0 ml/m\S\2 SV(sp4-el) 60.9 ml SI(sp4-el) 26.1 ml/m\S\2 SV(sp2-el) 53.0 ml SI(sp2-el) 22.7 ml/m\S\2 Doppler Measurements and Calculations MV E max marivel 55.3 cm/sec MV A max marivel 83.9 cm/sec MV E/A 0.66 MV dec time 0.26 sec Ao V2 max 137.3 cm/sec Ao max PG 7.5 mmHg Ao max PG (full) 3.8 mmHg LV V1 max PG 3.8 mmHg LV V1 max 97.0 cm/sec
[2017-03-16] MEDS ORDERED: PNEUMOCOCCAL POLYSACCHARIDES 25 MCG/0.5 ML VIAL/SYR IM. ONE (16:30)
[2017-03-16] MEDS ORDERED: PNEUMOCOCCAL ADMINISTRATION CHARGE ONE (16:30)
[2017-03-16] MEDS ORDERED: INFLUENZA VIRUS QUAD VACCINE 0.5 ML SYR IM. ONE (16:30)
[2017-03-16] MEDS ORDERED: INFLUENZA ADMINISTRATION CHARGE ONE (16:30)
--- NOTE | 2017-03-16 17:40 | DIAGNOSTIC IMAGING REPORT ---
MRI OF THE BRAIN WITHOUT AND WITH IV CONTRAST CLINICAL HISTORY: STROKE COMPARISON STUDY: CT scan of the head dated 03/16/2017 TECHNIQUE: MRI of the brain was performed from the vertex to the skull base utilizing various T1 and T2 weighted sequences. Following the IV administration of 9.8 mL of Gadavist contrast, additional enhanced images were obtained. FINDINGS: Sagittal T1, axial diffusion, proton density and T2 weighted axial, coronal FLAIR, and pre and post axial T1-weighted images were acquired. These were supplemented with post gadolinium coronal T1 weighted images. No intra or extra-axial mass lesions are visualized. Axial diffusion-weighted images reveal no evidence of acute or subacute infarction. There is no evidence of ventricular dilatation. Proton density T2-weighted and FLAIR images reveal no significant intraparenchymal signal abnormalities. There are no abnormal flow voids. There is no evidence of pathologic enhancement. Polypoid mucosal changes are present within the maxillary sinuses. IMPRESSION: Mild inflammatory changes within the paranasal sinuses. Otherwise normal MRI of the brain for age. Electronically signed by: Aman Parker M.D. 03/16/2017 5:39 PM Dictated Date/Time: 03/16/2017 5:37 PM
[2017-03-16] MEDS: NSS + 20MEQ KCL 1000ML 1,000 ML IV SCH (18:48)
[2017-03-16 18:50] VITALS: BP 130/73; PULSE 69; TEMP 36.7; O2SAT 97
[2017-03-16 19:12] LABS: CKMB/CK RATIO 1.8 (0-3.0)
--- NOTE | 2017-03-16 19:48 | NEUROLOGY CONSULTATION ---
DATE OF CONSULTATION: 03/16/2017 REASON FOR CONSULTATION: Loss of consciousness, and left hemiparesis. 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 He was not found in that same room that he believes he fell and the next thing he remembers is waking up in the hospital. Apparently, coworkers found him but did not do any particular assessment of blood pressure and pulse and when manual machinist arrived, he was unresponsive and pulseless. They did two chest compressions and the patient awakened. Upon arrival in the Emergency Room, he was confused but arousable and found to have a left hemiparesis. Stroke neurology was consulted and elected not to give TPA probably because of a variety of reasons. CT angiography was normal. CT of the head was normal and the patient had fallen and seizure was within the differential. Several years ago, the patient had an episode of brief loss of consciousness without any seizure activity and some left-sided weakness which lasted 2-3 hours. I believe, he was to be taking antiplatelet therapy with aspirin and that is on his primary's med list, but the patient was not doing so. The patient has otherwise been in his usual state of health. He has a mild non-throbbing headache today which he indicates that it came on recently and he attributes to caffeine withdrawal. He has not had any fevers, chills, sweats, head or neck injury, chiropractic manipulation of the neck, chest pain, palpitations or shortness of breath. PAST MEDICAL HISTORY: Notable for diastolic dysfunction, COPD, reflux, and rhinitis. The patient has glaucoma. SURGICAL HISTORY: None, although he is awaiting back surgery. SOCIAL HISTORY: Does not smoke, drinks occasionally. No allergies. He has been taking Flovent, Flonase, but not aspirin. REVIEW OF SYSTEMS: As above. Additionally, has chronic back pain, numbness of the left lower extremity. On Dr. Macias's exam, he was sleepy but arousable. The patient denies any neck pain. IMAGING DATA: CT of the head and neck were unremarkable. MRI of the brain, mild inflammatory changes, paranasal sinuses, otherwise normal for age. This was done with and without and I have reviewed that. LABORATORY DATA: White count, H and H and platelet count were normal. PT, PTT normal. ABG: pH 7.44, pCO2 was 38, pO2 was 78. Urinalysis notable for greater than 30 epithelial cells, 5-10 red cells. Toxicology negative. Chemistry profile notable for a CK of 88 and is otherwise unremarkable including a random blood sugar of 102. PHYSICAL EXAMINATION: VITAL SIGNS: On admission, pulse 68, respirations 16, blood pressure 164/90, 95% and his EKG showed sinus bradycardia, minimal voltage for LVH, maybe a normal variant. GENERAL: On examination, the patient is awake, mildly cognitively slow, but oriented x3 without any aphasia or right/left confusion or denial or neglect. Pulse 58, respirations 16, blood pressure 163/86, and 95% NECK: There are no carotid bruits. HEART: No heart murmurs. Heart is regular rate and rhythm. LUNGS: Clear. ABDOMEN: Soft and nontender. There is no calf swelling or tenderness. Posterior tibial pulses are intact. NEUROLOGIC: Pupils are equal, round, reactive to light. In the right eye, the right superior and inferior nasal staley are reduced which the patient and his indicate are related to glaucoma. There is no visual extinction. There is normal extraocular motility and may be a mild flattening of the left nasal labial fold. Motor: There is some mild weakness of the left upper extremity. There is a drift without pronation. Rapid alternating movements are mildly reduced on the left. Left lower extremity is minimally weak as well. Reflexes are brisker on the right than the left. Toes are downgoing. [id number] and [id number] are normal. Sensation is diminished in the left leg to light touch and vibration and is otherwise normal. IMPRESSION: 1. Query transient ischemic attack with fall. 2. Query seizure with postictal hemiparesis. 3. Less likely migraine. 4. It would be an unusual manifestation of a closed head injury to have a hemiparesis and not have any abnormality on imaging. PLAN: Antiplatelet therapy with aspirin, and Plavix, permissive hypertension, telemetric monitoring, echocardiography, statin use, EEG. We will follow with you. RAYMUNDO
[2017-03-16] MEDS: FLUTICASONE PROP HFA INH 44 MCG INHALER INH SCH (20:05)
[2017-03-16] MEDS: ACETAMINOPHEN 325 MG TAB PO PRN (22:08)
[2017-03-16 23:20] VITALS: BP 105/64; PULSE 59; TEMP 36.8; O2SAT 95
[2017-03-17 01:08] LABS: CKMB/CK RATIO 1.6 (0-3.0)
[2017-03-17 03:44] VITALS: BP_SYST 112; BP_SYST 131; BP_DIAS 65; BP_DIAS 67; PULSE 57; PULSE 78; TEMP 36.6; TEMP 37.3; O2SAT 83; O2SAT 96
[2017-03-17] MEDS: NSS + 20MEQ KCL 1000ML 1,000 ML IV SCH ×2 (06:13→17:15)
[2017-03-17 07:23] LABS: HEMATOCRIT 42.8 % (42-52); MEAN CELL VOLUME 80.6 fL (80-100); MEAN CORPUSCULAR HEMOGLOBIN 26.6 pg (25-34); MEAN CORPUSCULAR HGB CONC 32.9 g/dl (32-36); MEAN PLATELET VOLUME 9.9 fL (7.4-10.4); PLATELET COUNT 239 K/uL (130-400); RED BLOOD COUNT 5.31 M/uL (4.7-6.1); WHITE BLOOD COUNT 7.19 K/uL (4.8-10.8)
[2017-03-17 07:24] VITALS: BP 132/78; PULSE 55; TEMP 36.9; O2SAT 94
[2017-03-17 07:40] LABS: BUN/CREATININE RATIO 17.9 (10-20); CALCIUM 8.1 mg/dl (8.5-10.1); CREATININE 0.82 mg/dl (0.60-1.40); MAGNESIUM 2.1 mg/dl (1.8-2.4); POTASSIUM 4.2 mmol/L (3.5-5.1)
[2017-03-17 07:41] LABS: PHOSPHORUS 2.8 mg/dl (2.5-4.9)
[2017-03-17 07:46] LABS: CKMB/CK RATIO 1.9 (0-3.0)
[2017-03-17] MEDS: CLOPIDOGREL BISULFATE 75 MG TAB PO SCH (08:38)
[2017-03-17] MEDS: ASPIRIN 325 MG ECTAB PO SCH (08:38)
[2017-03-17] MEDS: FLUTICASONE PROP HFA INH 44 MCG INHALER INH SCH ×2 (08:38→20:51)
[2017-03-17] MEDS ORDERED: FLUTICASONE PROPIONATE NA SPR 16 GM BTL SCH (09:00)
[2017-03-17 10:58] VITALS: BP 132/73; PULSE 61; TEMP 37; O2SAT 96
--- NOTE | 2017-03-17 13:45 | Progress Note ---
Medicine Progress Note Date & Time of Visit: Mar 17, 2017 at 13:45 . Subjective Admitted yesterday after falling 20 feet from a ladder and losing consciousness. Patient does not recall events leading up to the fall; there were no witnesses. He was found unresponsive by coworkers on the floor, but is unclear if the loss of consciousness occurred before or after the fall. Apparently there was concern in the field that he may have suffered a cardiac arrest and CPR was initiated, patient began to regain consciousness after only a couple compressions. He felt well the morning before the fall. No fever, chest pain, palpitations, respiratory symptoms, GI symptoms, neurologic symptoms. Main complaint today is left shoulder pain. He still notes some weakness of left upper extremity which was noted yesterday after the fall. He has chronic weakness of his left lower extremity secondary to lumbar disc disease, but the weakness is worse than baseline. No headache. No chest pain. No cough or shortness of breath. No nausea or vomiting. . Objective Last 8 Hrs Date Time Temp Pulse Resp B/P (MAP) Pulse Ox O2 Delivery O2 Flow Rate FiO2 03/17/17 12:00 Room Air 03/17/17 10:58 37.0 61 14 132/73 (92) 96 Room Air 03/17/17 08:40 Room Air 03/17/17 08:00 Room Air 03/17/17 07:24 36.9 55 14 132/78 (96) 94 Physical Exam: General- no acute distress Neck- supple; normal range of motion; nontender Lungs- clear Heart- regular Abdomen- normal bowel sounds, soft, nontender Extremities- pain/decreased range of motion both shoulders; no deformity or overlying warmth/erythema; no pretibial edema or calf tenderness Neuro- alert, oriented; PERRL, EOMI; no facial palsy; no dysarthria; LUE strength 4/5 proximally; left handgrip 4/5; left hip flexion 3.5/5; plantar reflex equivocally upgoing on left . Laboratory Results: Last 24 Hours Test 03/16/17 18:28 03/17/17 00:35 03/17/17 06:47 03/17/17 12:32 Total Creatine Kinase 65 U/L 57 U/L 52 U/L Creatine Kinase MB 1.2 ng/ml 0.9 ng/ml 1.0 ng/ml Creatine Kinase MB Ratio 1.8 1.6 1.9 Troponin I 0.016 ng/ml < 0.015 ng/ml 0.018 ng/ml White Blood Count 7.19 K/uL Red Blood Count 5.31 M/uL Hemoglobin 14.1 g/dL Hematocrit 42.8 % Mean Corpuscular Volume 80.6 fL Mean Corpuscular Hemoglobin 26.6 pg Mean Corpuscular Hemoglobin Concent 32.9 g/dl RDW Standard Deviation 44.4 fL RDW Coefficient of Variation 15.2 % Platelet Count 239 K/uL Mean Platelet Volume 9.9 fL Sodium Level 141 mmol/L Potassium Level 4.2 mmol/L Chloride Level 110 mmol/L Carbon Dioxide Level 24 mmol/L Anion Gap 7.0 mmol/L Blood Urea Nitrogen 15 mg/dl Creatinine 0.82 mg/dl Est Creatinine Clear Calc Drug Dose 119.2 ml/min Estimated GFR () 109.1 Estimated GFR (Non- 94.1 BUN/Creatinine Ratio 17.9 Random Glucose 103 mg/dl Calcium Level 8.1 mg/dl Phosphorus Level 2.8 mg/dl Magnesium Level 2.1 mg/dl Assessment & Plan LOSS OF CONSCIOUSNESS Underlying etiology uncertain. Loss of consciousness may have led to the fall; alternatively, loss of consciousness may been secondary to closed head injury from the fall. No acute vascular event or intracranial hemorrhage per neuroimaging by CT or MRI. No arrhythmias noted on cardiac monitoring as far. Low clinical suspicion for pulmonary embolism. Cardiac markers negative. No evidence of volume depletion, sepsis, etc. Seen by Neurology. EEG ordered, results pending. Continue cardiac monitoring. LEFT-SIDED WEAKNESS Chronic weakness left lower extremity secondary to lumbar disc disease. Worsening weakness left lower extremity and new weakness left upper extremity since yesterday's fall. Patient does not feel that apparent weakness is related to pain and inability to perform strength testing. Seen by Neurology. No acute vascular event or intracranial hemorrhage per neuroimaging by CT or MRI. Antiplatelet therapy recommended. PT / OT. SHOULDER PAIN Check plain films. Consult Ortho. OT, passive ROM. COPD Stable. VTE PROPHYLAXIS No anticoagulants due to trauma. SCD's. Ambulate. DISPOSITION To be determined. May need inpatient rehabilitation. Medical follow-up with Dr. Renner. . Current Inpatient Medications: Current Inpatient Medications Medications (Trade) Dose Ordered Sig/Ian Route Start Time Stop Time Status Last Admin Dose Admin Ioversol (Optiray 320) 125 ml UD PRN IV 03/16/17 10:45 03/20/17 10:44 Albuterol (Ventolin Hfa Inhaler) 2 puffs Q6H PRN INH 03/16/17 12:00 04/15/17 11:59 Albuterol Sulfate (Ventolin 0.083% 2.5MG/3ML Neb) 2.5 mg Q6R PRN INH 03/16/17 12:00 04/15/17 11:59 Aspirin (Ecotrin Tab) 325 mg QAM PO 03/17/17 09:00 04/16/17 08:59 03/17/17 08:38 325 MG Clopidogrel Bisulfate (plAVix TAB) 75 mg QAM PO 03/17/17 09:00 04/16/17 08:59 03/17/17 08:38 75 MG Fluticasone Propionate (Flovent Hfa 44MCG Inhaler) 2 puffs BID INH 03/16/17 21:00 04/15/17 20:59 03/17/17 08:38 2 PUFFS Potassium Chloride/Sodium Chloride 1,000 ml @ 75 mls/hr [id number] IV 03/16/17 17:00 04/15/17 16:59 03/17/17 06:13 75 MLS/HR Acetaminophen (Tylenol Tab) 650 mg Q6H PRN PO 03/16/17 21:30 04/15/17 21:29 03/16/17 22:08 650 MG
--- NOTE | 2017-03-17 13:46 | ELECTROENCEPHALOGRAPH REPORT ---
REQUESTING PHYSICIAN: Dr. Macias. CLINICAL DIAGNOSIS: Stroke-like symptoms. EEG DIAGNOSIS: Essentially normal during wakefulness. DESCRIPTION OF TRACING: This EEG was done as a bedside recording and is of excellent technical quality with few or no muscle movement artifacts. A simultaneous video analysis of patient movement and behavior was also obtained. Photic stimulation was the only activation procedure utilized. Drowsiness and light sleep were not recorded. Under these conditions, there is evidence for normal-appearing background rhythm in the alpha range of up to 10 Hz of maximum frequency and of up to 30 microvolts of maximum amplitude. This is maximum posterior head regions and bilaterally symmetrical. Polymorphic mid frequency theta activity of modest voltage is seen over all head regions without a clear focal or regional predominance. Anterior head region maximum bilaterally symmetrical low voltage fast activity in the beta range is present. Photic stimulation provoked is a modest driving response without a photomyogenic or photoparoxysmal component. At no time during the waking tracing is there evidence for potentially epileptogenic activity in the form of polyspike or spike wave bursts, focal sharp waves or focal spikes. INTERPRETATION: This EEG is essentially normal during wakefulness without evidence for focal or generalized encephalopathy and without evidence for potentially epileptogenic activity.
[2017-03-17 13:55] LABS: CKMB/CK RATIO 1.7 (0-3.0)
--- NOTE | 2017-03-17 14:45 | Neurology Progress Notes ---
Neurology Progress Note Date of Service Mar 17, 2017. Christine rodriguez a 61-year-old male with PMH diastolic dysfunction, on no medications; history of COPD, seems to be controlled; and esophageal reflux. He apparently went to work this morning. He does not take any medications except aspirin occasionally and at workplace, he was noted to be unresponsive. He mentioned that he had a fall or about 20 feet and was found in another area other than where he fell. He lost consciousness the patient was unconscious and somebody did check the pulse for him and at that time, he was noted to be pulseless, not breathing and he got 2 chest compressions. With that, he woke up. EMS en route found him to be in and out of consciousness, at times talking, and at times not talking. He was still conversant and he was noted to have left- sided weakness without any facial asymmetry. labs and study at this point have been negative , but given the history of ongoing drowsiness and fluctuations in the level of consciousness and left-sided weakness, he was admitted to telemetry unit. he had a similar incident 2 years ago which the left sided weakness was not a rov Before that, the [facility] telemedicine consulted for probable stroke and it was decided that the patient is not a candidate for TPA at this time.denies CP, SOB , abdominal pain, N, V, +bilateral shoulder pain, +left sided weakness which he states has improved. Objective Date Time Temp Pulse Resp B/P (MAP) Pulse Ox O2 Delivery O2 Flow Rate FiO2 03/17/17 12:00 Room Air 03/17/17 10:58 37.0 61 14 132/73 (92) 96 Room Air 03/17/17 08:40 Room Air 03/17/17 08:00 Room Air 03/17/17 07:24 36.9 55 14 132/78 (96) 94 03/17/17 04:00 Room Air 03/17/17 03:44 36.6 57 18 112/65 (81) 96 Nasal Cannula 03/16/17 23:59 Room Air 03/16/17 23:20 36.8 59 19 105/64 (78) 95 Room Air 03/16/17 20:00 Room Air 03/16/17 18:50 36.7 69 18 130/73 (92) 97 Room Air 03/16/17 16:00 Room Air 03/16/17 15:10 36.5 58 18 113/72 (86) 96 Room Air Last 24 Hours Test 03/16/17 18:28 03/17/17 00:35 03/17/17 06:47 03/17/17 12:32 Total Creatine Kinase 65 U/L 57 U/L 52 U/L 52 U/L Creatine Kinase MB 1.2 ng/ml 0.9 ng/ml 1.0 ng/ml 0.9 ng/ml Creatine Kinase MB Ratio 1.8 1.6 1.9 1.7 Troponin I 0.016 ng/ml < 0.015 ng/ml 0.018 ng/ml 0.017 ng/ml White Blood Count 7.19 K/uL Red Blood Count 5.31 M/uL Hemoglobin 14.1 g/dL Hematocrit 42.8 % Mean Corpuscular Volume 80.6 fL Mean Corpuscular Hemoglobin 26.6 pg Mean Corpuscular Hemoglobin Concent 32.9 g/dl RDW Standard Deviation 44.4 fL RDW Coefficient of Variation 15.2 % Platelet Count 239 K/uL Mean Platelet Volume 9.9 fL Sodium Level 141 mmol/L Potassium Level 4.2 mmol/L Chloride Level 110 mmol/L Carbon Dioxide Level 24 mmol/L Anion Gap 7.0 mmol/L Blood Urea Nitrogen 15 mg/dl Creatinine 0.82 mg/dl Est Creatinine Clear Calc Drug Dose 119.2 ml/min Estimated GFR () 109.1 Estimated GFR (Non- 94.1 BUN/Creatinine Ratio 17.9 Random Glucose 103 mg/dl Calcium Level 8.1 mg/dl Phosphorus Level 2.8 mg/dl Magnesium Level 2.1 mg/dl Imaging: This EEG is essentially normal during wakefulness without evidence for focal or generalized encephalopathy and without evidence for potentially epileptogenic activity. MRI brain-Mild inflammatory changes within the paranasal sinuses. Otherwise normal MRI of the brain for age. TTE- * Sinus rhythm was present during the echocardiogram. * There is mild concentric left ventricular hypertrophy. * The left ventricular wall motion is normal. * The LV Ejection Fraction = 55-60%. * There is mild mitral annular calcification. * Grade I diastolic dysfunction, (abnormal relaxation pattern). * Doppler findings do not suggest pulmonary hypertension. * NO ASD Exam: Physical Exam: Constitutional: appearance nourished, healthy Ears, Nose, Mouth and Throat: mucous membranes moist, no injection and skin normal, eyes normal Cardiovascular: normal S-1 and S-2 and regular rate and rhythm Respiratory: clear to auscultation (CTA) and no rales, rhonchi or wheeze Musculoskeletal: no peripheral edema and good distal pulses Skin: no stigmata of neurocutaneous disease noted and normal and intact Eyes: extraocular muscles intact (EOMI) and pupils equal, round and reactive to light (PERRL) NEUROLOGIC EXAMINATION: Mental status: Alert and interactive Oriented to full date and location Oriented to person Speech fluent with no evidence of aphasia Cranial Nerves smile eye brow raise symmetric, tongue midline Reflexes: Deep tendon reflexes were symmetrical and graded 2/5. Sensory: decreased sensation left LE to cool and vibration to ankle Coordination: finger to nose without bi pass Gait/Stance: Posture lying in bed Motor: pronator drift on left Strength: right UE/LE hand facility specialist biceps triceps hip flex plantar flex 5/5, left UE hand facility specialist biceps triceps 3/5, hip flex 4/5 Current Inpatient Medications Medications (Trade) Dose Ordered Sig/Ian Route Start Time Stop Time Status Last Admin Dose Admin Ioversol (Optiray 320) 125 ml UD PRN IV 03/16/17 10:45 03/20/17 10:44 Albuterol (Ventolin Hfa Inhaler) 2 puffs Q6H PRN INH 03/16/17 12:00 04/15/17 11:59 Albuterol Sulfate (Ventolin 0.083% 2.5MG/3ML Neb) 2.5 mg Q6R PRN INH 03/16/17 12:00 04/15/17 11:59 Aspirin (Ecotrin Tab) 325 mg QAM PO 03/17/17 09:00 04/16/17 08:59 03/17/17 08:38 325 MG Clopidogrel Bisulfate (plAVix TAB) 75 mg QAM PO 03/17/17 09:00 04/16/17 08:59 03/17/17 08:38 75 MG Fluticasone Propionate (Flovent Hfa 44MCG Inhaler) 2 puffs BID INH 03/16/17 21:00 04/15/17 20:59 03/17/17 08:38 2 PUFFS Potassium Chloride/Sodium Chloride 1,000 ml @ 75 mls/hr [id number] IV 03/16/17 17:00 04/15/17 16:59 03/17/17 06:13 75 MLS/HR Acetaminophen (Tylenol Tab) 650 mg Q6H PRN PO 03/16/17 21:30 04/15/17 21:29 03/16/17 22:08 650 MG Impression 61 year old male fall from 20 feet and left sided weakness Plan 1. EEG- no seizure activity 2. plavix 75 mg and aspirin 81 mg x 3 months and then stop plavix and continue aspirin 81 mg life time 3. permissive and then HTN, DL optimize 4. MRI brain no radiographic evidence of stroke 5. TTE unremarkable 6. PT/OT speech for discharge needs I have seen and discussed above patient with Dr Carmenza Waldron, neurology. PT seen examined. spoke with EMT that was at scene. Pt did have a pulse and was breathing. He administered sternal rub (not chest compressions) and pt awaked. MRI reviewed, neg. EEG neg. Still with L hemiparesis with some nonphysiologic features, L drift without pronation, nml rapid alt movements on left inspite of 3/5 LUE weakness. LLE remains mildly weak. Imp atypical infarct, neg imaging, consider repeat MRI brain Wed or Thurs. Seizure with post-ictal paralysis/ If pelayo neg consider ambulatory EEG Continue antiplt tx, risk factor modification, cardiac monitoring, [facility] as outpt. GALE Waldron MD
--- NOTE | 2017-03-17 15:06 | DIAGNOSTIC IMAGING REPORT ---
L SHOULDER MIN 2 VIEWS ROUTINE HISTORY: 61 years-old Male left shoulder pain after fall acute left shoulder pain status post fall. COMPARISON: Chest radiographs 03/16/2017 TECHNIQUE: 4 views of the left shoulder FINDINGS: Bones are mildly demineralized. No acute fracture or dislocation. Mild glenohumeral and acromioclavicular osteoarthritis. Imaged lung staley are clear. Negative for opaque foreign body. IMPRESSION: Mild degenerative changes about the left shoulder without acute fracture or dislocation. The above report was generated using voice recognition software. It may contain grammatical, syntax or spelling errors. Electronically signed by: Celestine Hugo M.D. 03/17/2017 3:05 PM Dictated Date/Time: 03/17/2017 3:04 PM
[2017-03-17 15:28] VITALS: BP_SYST 133; BP_SYST 147; BP_DIAS 59; BP_DIAS 77; PULSE 63; PULSE 69; TEMP 36.5; TEMP 36.6; O2SAT 94; O2SAT 95
[2017-03-17] MEDS: ACETAMINOPHEN 325 MG TAB PO PRN ×2 (16:29→22:14)
--- NOTE | 2017-03-17 16:37 | ORTHOPEDIC CONSULTATION REPORT ---
DATE OF CONSULTATION: 03/17/2017 CHIEF COMPLAINT: Bilateral shoulder pain. HISTORY OF PRESENT ILLNESS: Jose is a 61-year-old left hand dominant male who we are asked to see regarding bilateral shoulder pain. He was admitted yesterday after a fall from what he estimates to about 20-25 feet high from a ladder. He remembers being on a ladder may be starting down a couple steps on the ladder, but nothing after that, regarding the fall. History was obtained throughout the chart, it does appear that he was unconscious, unresponsive and pulseless at one point had some chest compressions, but then was more alert after that at that point. He said he noticed immediate pain in his right shoulder and the left shoulder has began to hurt him more today. No prior problems with his shoulders. No other acute orthopedic complaints at this time. He does have a history of some back pain with some numbness in his left foot and has been evaluated regarding some spine surgery in the past. He has some left knee pain as well that was preexisting. He has no other complaints at this time. Past medical history including surgeries, medicines, allergies family history and social history all reviewed in his chart. Please refer to his admission H&P for completeness. PHYSICAL EXAMINATION: GENERAL: Today, he is alert. He is in no distress. MUSCULOSKELETAL: He has no tenderness of his cervical spine. He is able to actively raise both his arms some. He has painful motion throughout, does have some decreased range of motion with his shoulders. He does have some weakness in the bilateral shoulders with resisted abduction, appears to be related to his pain. He has negative belly press test, bilaterally. He has no pain with motion of his elbows or wrists. He is neurovascularly intact. He has no pain with ROM of his hips. He does have some pain with left knee motion, which he said he had before, no pain with right knee ROM and no swelling of his knees or legs. IMAGING DATA: X-rays today were reviewed of bilateral shoulders show some degenerative changes at his AC joint. No fracture, no dislocation of the glenohumeral joint. IMPRESSION: Bilateral shoulder pain with rotator cuff strain/contusion versus possible rotator cuff tears. PLAN: He was seen and examined by Dr. Shah today. We would recommend continued conservative management for his shoulders at this time. Dr. Shah did speak with Dr. Allen regarding medications and would recommend some Toradol for pain if he is able to do so from the medical standpoint with his other medications. It is okay for him to continue using his arms as tolerated and range of motion of both of his shoulders, to avoid stiffness with his shoulders. We will see how he responds to conservative care over the next 2 weeks or so. If he is not improving in 2 weeks we could look into MRI of 1 or both of his shoulders. RAYMUNDO
[2017-03-17] MEDS ORDERED: NURSING VERBAL MED ORDER ONE (16:45)
[2017-03-17 19:09] VITALS: BP 139/75; PULSE 70; TEMP 36.5; O2SAT 97
[2017-03-17 23:32] VITALS: BP 120/66; PULSE 55; TEMP 36.7; O2SAT 97
[2017-03-18] VITALS (8 sets, daily range): BP systolic 105–162; BP diastolic 63–88; PULSE 46–64; TEMP 36.4–36.9; O2SAT 96–98
[2017-03-18] MEDS: NSS + 20MEQ KCL 1000ML 1,000 ML IV SCH (05:31)
[2017-03-18 06:23] LABS: HEMATOCRIT 42.1 % (42-52); MEAN CELL VOLUME 80.7 fL (80-100); MEAN CORPUSCULAR HEMOGLOBIN 26.6 pg (25-34); PLATELET COUNT 245 K/uL (130-400); RED BLOOD COUNT 5.22 M/uL (4.7-6.1); WHITE BLOOD COUNT 6.37 K/uL (4.8-10.8)
[2017-03-18 06:58] LABS: BUN/CREATININE RATIO 16.6 (10-20); CREATININE 0.86 mg/dl (0.60-1.40); POTASSIUM 4.2 mmol/L (3.5-5.1)
[2017-03-18] MEDS: CLOPIDOGREL BISULFATE 75 MG TAB PO SCH (07:48)
[2017-03-18] MEDS: FLUTICASONE PROP HFA INH 44 MCG INHALER INH SCH ×2 (07:49→21:18)
[2017-03-18] MEDS: ASPIRIN 325 MG ECTAB PO SCH (07:49)
--- NOTE | 2017-03-18 16:50 | Neurology Progress Notes ---
Neurology Progress Note Date of Service Mar 18, 2017. Christine rodriguez a 61-year-old male with PMH diastolic dysfunction, on no medications; history of COPD, seems to be controlled; and esophageal reflux. He apparently went to work this morning. He does not take any medications except aspirin occasionally and at workplace, he was noted to be unresponsive. He mentioned that he had a fall or about 20 feet and was found in another area other than where he fell. He lost consciousness the patient was unconscious and somebody did check the pulse for him and at that time, he was noted to be pulseless, not breathing and he got 2 chest compressions. With that, he woke up. EMS en route found him to be in and out of consciousness, at times talking, and at times not talking. He was still conversant and he was noted to have left- sided weakness without any facial asymmetry. labs and study at this point have been negative , but given the history of ongoing drowsiness and fluctuations in the level of consciousness and left-sided weakness, he was admitted to telemetry unit. he had a similar incident 2 years ago which the left sided weakness was not a rov Before that, the [facility] telemedicine consulted for probable stroke and it was decided that the patient is not a candidate for TPA at this time. He states he is back to his baseline. his brother is in the room and states they were walking in the [place] without difficulty. denies CP, SOB, abdominal pain , N, V, +bilateral shoulder pain, +left sided weakness which he states has improved. Objective Date Time Temp Pulse Resp B/P (MAP) Pulse Ox O2 Delivery O2 Flow Rate FiO2 03/18/17 15:48 36.5 61 19 143/76 (98) 97 Room Air 03/18/17 14:00 Room Air 03/18/17 11:07 36.5 62 18 137/83 (101) 97 Room Air 03/18/17 08:23 61 137/81 (99) 03/18/17 08:00 Room Air 03/18/17 07:57 36.8 57 16 162/88 (112) 98 Room Air 03/18/17 04:00 Room Air 03/18/17 03:54 36.4 57 18 136/81 (99) 97 Room Air 03/18/17 00:02 Room Air 03/17/17 23:32 36.7 55 19 120/66 (84) 97 Room Air 03/17/17 20:00 Room Air 03/17/17 19:09 36.5 70 17 139/75 (96) 97 Room Air Last 24 Hours Test 03/18/17 06:06 White Blood Count 6.37 K/uL Red Blood Count 5.22 M/uL Hemoglobin 13.9 g/dL Hematocrit 42.1 % Mean Corpuscular Volume 80.7 fL Mean Corpuscular Hemoglobin 26.6 pg Mean Corpuscular Hemoglobin Concent 33.0 g/dl RDW Standard Deviation 43.6 fL RDW Coefficient of Variation 14.9 % Platelet Count 245 K/uL Mean Platelet Volume 10.0 fL Sodium Level 141 mmol/L Potassium Level 4.2 mmol/L Chloride Level 110 mmol/L Carbon Dioxide Level 26 mmol/L Anion Gap 5.0 mmol/L Blood Urea Nitrogen 14 mg/dl Creatinine 0.86 mg/dl Est Creatinine Clear Calc Drug Dose 113.6 ml/min Estimated GFR () 107.0 Estimated GFR (Non- 92.3 BUN/Creatinine Ratio 16.6 Random Glucose 108 mg/dl Calcium Level 8.0 mg/dl Imaging: no new imaging Exam: Physical Exam: Constitutional: , appearance nourished, healthy and normal Ears, Nose, Mouth and Throat: mucous membranes moist, no injection and skin normal, eyes normal Cardiovascular: normal S-1 and S-2 and regular rate and rhythm Respiratory: clear to auscultation (CTA) and no rales, rhonchi or wheeze Musculoskeletal: no peripheral edema Skin: no stigmata of neurocutaneous disease noted and normal and intact Eyes: extraocular muscles intact (EOMI) and pupils equal, round and reactive to light (PERRL) NEUROLOGIC EXAMINATION: Mental status: Alert and interactive Oriented to full date and location Oriented to person Speech fluent with no evidence of aphasia Cranial Nerves smile eye brow raise symmetric, tongue midline Reflexes: Deep tendon reflexes were symmetrical and graded 2/5. Plantar responses were flexor. Sensory: no deficit to light or cool touch Coordination: finger to nose without bi pass Gait/Stance: Posture sitting in bed Motor: Negative for pronator drift of out stretched arms with eyes closed. 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, hip flex plantar flex ext 5/5 bilaterally Current Inpatient Medications Medications (Trade) Dose Ordered Sig/Ian Route Start Time Stop Time Status Last Admin Dose Admin Ioversol (Optiray 320) 125 ml UD PRN IV 03/16/17 10:45 03/20/17 10:44 Albuterol (Ventolin Hfa Inhaler) 2 puffs Q6H PRN INH 03/16/17 12:00 04/15/17 11:59 Albuterol Sulfate (Ventolin 0.083% 2.5MG/3ML Neb) 2.5 mg Q6R PRN INH 03/16/17 12:00 04/15/17 11:59 Aspirin (Ecotrin Tab) 325 mg QAM PO 03/17/17 09:00 04/16/17 08:59 03/18/17 07:49 325 MG Clopidogrel Bisulfate (plAVix TAB) 75 mg QAM PO 03/17/17 09:00 04/16/17 08:59 03/18/17 07:48 75 MG Fluticasone Propionate (Flovent Hfa 44MCG Inhaler) 2 puffs BID INH 03/16/17 21:00 04/15/17 20:59 03/18/17 07:49 2 PUFFS Acetaminophen (Tylenol Tab) 650 mg Q6H PRN PO 03/16/17 21:30 04/15/17 21:29 03/17/17 22:14 650 MG Impression 61 year old male fall from 20 feet and left sided weakness Plan 1. EEG- no seizure activity 2. plavix 75 mg and aspirin 81 mg x 3 months and then stop plavix and continue aspirin 81 mg life time 3. permissive and then HTN, DL optimize 4. MRI brain no radiographic evidence of stroke- will repeat tomorrow for any further recommendations 5. TTE unremarkable 6. PT/OT speech for discharge needs I have seen and discussed above patient with Dr Carmenza Waldron, neurology Pt much improved. Still with minor sx, no neck pain. Exam mild flattened L NLF, otherwise strength full. P Fall with L hemiparesis, improving. Initial MRI brain noncontributory, EEG no sz activity. Repeat MRI brain noncontrast tomorrow to eval for stroke. Clinically doubt cervical spine pathology as pt has L facial droop, no neck pain and CT c spine was reassuring. continue risk modification, I will consider an extended eeg as outpt. If MRI neg tomorrow and pt stable he may be discharged with follow-up with us within next 2 weeks. No driving in the interim. GALE Waldron MD
[2017-03-18] MEDS: ACETAMINOPHEN 325 MG TAB PO PRN (21:18)
--- NOTE | 2017-03-18 21:21 | Progress Note ---
Medicine Progress Note Date & Time of Visit: Mar 18, 2017 at 11:00 . Subjective Feels better. Less bilat shoulder pain. Left-sided arm and leg weakness improved. Ambulating with assistance. No headache. No visual changes. No chest pain. No arrhythmias noted on telemetry. No cough or SOB. No nausea or vomiting. . Objective Last 8 Hrs Date Time Temp Pulse Resp B/P (MAP) Pulse Ox O2 Delivery O2 Flow Rate FiO2 03/18/17 18:42 36.5 46 18 147/68 (94) 96 Room Air 03/18/17 16:00 Room Air 03/18/17 15:48 36.5 61 19 143/76 (98) 97 Room Air 03/18/17 14:00 Room Air Physical Exam: General- no acute distress Lungs- clear Heart- regular Abdomen- normal bowel sounds, soft, nontender Extremities- improved range of motion both shoulders; no pretibial edema or calf tenderness Neuro- alert, oriented; PERRL, EOMI; no facial palsy; no dysarthria; left pronator drift; left handgrip 4.5/5; left hip flexion 4/5 . Laboratory Results: Last 24 Hours Test 03/18/17 06:06 White Blood Count 6.37 K/uL Red Blood Count 5.22 M/uL Hemoglobin 13.9 g/dL Hematocrit 42.1 % Mean Corpuscular Volume 80.7 fL Mean Corpuscular Hemoglobin 26.6 pg Mean Corpuscular Hemoglobin Concent 33.0 g/dl RDW Standard Deviation 43.6 fL RDW Coefficient of Variation 14.9 % Platelet Count 245 K/uL Mean Platelet Volume 10.0 fL Sodium Level 141 mmol/L Potassium Level 4.2 mmol/L Chloride Level 110 mmol/L Carbon Dioxide Level 26 mmol/L Anion Gap 5.0 mmol/L Blood Urea Nitrogen 14 mg/dl Creatinine 0.86 mg/dl Est Creatinine Clear Calc Drug Dose 113.6 ml/min Estimated GFR () 107.0 Estimated GFR (Non- 92.3 BUN/Creatinine Ratio 16.6 Random Glucose 108 mg/dl Calcium Level 8.0 mg/dl Assessment & Plan FALL / LOSS OF CONSCIOUSNESS Underlying etiology uncertain. Loss of consciousness may have led to the fall; alternatively, loss of consciousness may been secondary to closed head injury from the fall. No acute vascular event or intracranial hemorrhage per neuroimaging by CT or MRI. No arrhythmias noted on cardiac monitoring as far. Low clinical suspicion for pulmonary embolism. Cardiac markers negative. No evidence of volume depletion, sepsis, etc. Seen by Neurology in consultation. EEG negative. Continue cardiac monitoring. LEFT-SIDED WEAKNESS Chronic weakness left lower extremity secondary to lumbar disc disease. Worsening weakness left lower extremity and new weakness left upper extremity since yesterday's fall. Patient does not feel that apparent weakness is related to pain and inability to perform strength testing. Seen by Neurology. No acute vascular event or intracranial hemorrhage per neuroimaging by CT or MRI. Antiplatelet therapy recommended. PT / OT. Repeat MRI planned for tomorrow. SHOULDER PAIN Check plain films. Ortho consulted. No apparent fracture or dislocation. OT, passive ROM. COPD Stable. VTE PROPHYLAXIS No anticoagulants due to trauma. SCD's. Ambulate. DISPOSITION To be determined. May need inpatient rehabilitation. Medical follow-up with Dr. Renner. Ortho follow-up with Dr. Shah. . Current Inpatient Medications: Current Inpatient Medications Medications (Trade) Dose Ordered Sig/Ian Route Start Time Stop Time Status Last Admin Dose Admin Ioversol (Optiray 320) 125 ml UD PRN IV 03/16/17 10:45 03/20/17 10:44 Albuterol (Ventolin Hfa Inhaler) 2 puffs Q6H PRN INH 03/16/17 12:00 04/15/17 11:59 Albuterol Sulfate (Ventolin 0.083% 2.5MG/3ML Neb) 2.5 mg Q6R PRN INH 03/16/17 12:00 04/15/17 11:59 Aspirin (Ecotrin Tab) 325 mg QAM PO 03/17/17 09:00 04/16/17 08:59 03/18/17 07:49 325 MG Clopidogrel Bisulfate (plAVix TAB) 75 mg QAM PO 03/17/17 09:00 04/16/17 08:59 03/18/17 07:48 75 MG Fluticasone Propionate (Flovent Hfa 44MCG Inhaler) 2 puffs BID INH 03/16/17 21:00 04/15/17 20:59 03/18/17 07:49 2 PUFFS Acetaminophen (Tylenol Tab) 650 mg Q6H PRN PO 03/16/17 21:30 04/15/17 21:29 03/17/17 22:14 650 MG
[2017-03-19 04:12] VITALS: BP 114/62; PULSE 52; TEMP 36.4; O2SAT 97
[2017-03-19 08:00] VITALS: O2SAT 97
[2017-03-19] MEDS: FLUTICASONE PROP HFA INH 44 MCG INHALER INH SCH ×2 (08:05→19:19)
[2017-03-19 08:07] VITALS: BP 152/90; PULSE 50; TEMP 36.4; O2SAT 99
[2017-03-19] MEDS: ASPIRIN 325 MG ECTAB PO SCH (09:05)
[2017-03-19] MEDS: CLOPIDOGREL BISULFATE 75 MG TAB PO SCH (09:05)
[2017-03-19 12:00] VITALS: BP 135/79; PULSE 55; TEMP 36.4; O2SAT 93; O2SAT 97
[2017-03-19 15:05] VITALS: BP 108/68; PULSE 65; TEMP 36.5; O2SAT 98
--- NOTE | 2017-03-19 16:57 | DIAGNOSTIC IMAGING REPORT ---
MRI OF THE BRAIN WITHOUT CONTRAST CLINICAL HISTORY: Loss of consciousness. Left-sided weakness. COMPARISON STUDY: 03/16/2017 FINDINGS: Sagittal T1, axial diffusion, proton density and T2 weighted axial, coronal FLAIR, and axial T1-weighted images were acquired. No intra or extra-axial mass lesions are visualized Axial diffusion-weighted images reveal no evidence of acute or subacute infarction. There is no evidence of ventricular dilatation. Proton density T2-weighted and FLAIR images reveal no significant intraparenchymal signal abnormalities. There are no abnormal flow voids. There are polypoid mucosal changes within the maxillary sinuses. IMPRESSION: No acute intracranial findings. No evidence of intracranial mass. No evidence of acute or subacute infarction. Electronically signed by: Aman Parker M.D. 03/19/2017 4:56 PM Dictated Date/Time: 03/19/2017 4:54 PM
--- NOTE | 2017-03-19 17:11 | Neurology Progress Notes ---
Neurology Progress Note Date of Service Mar 19, 2017. Christine rodrigeuz a 61-year-old male with PMH diastolic dysfunction, on no medications; history of COPD, seems to be controlled; and esophageal reflux. He apparently went to work this morning. He does not take any medications except aspirin occasionally and at workplace, he was noted to be unresponsive. He mentioned that he had a fall or about 20 feet and was found in another area other than where he fell. He lost consciousness the patient was unconscious and somebody did check the pulse for him and at that time, he was noted to be pulseless, not breathing and he got 2 chest compressions. With that, he woke up. EMS en route found him to be in and out of consciousness, at times talking, and at times not talking. He was still conversant and he was noted to have left- sided weakness without any facial asymmetry. labs and study at this point have been negative , but given the history of ongoing drowsiness and fluctuations in the level of consciousness and left-sided weakness, he was admitted to telemetry unit. he had a similar incident 2 years ago which the left sided weakness was not a rov Before that, the [facility] telemedicine consulted for probable stroke and it was decided that the patient is not a candidate for TPA at this time. Today he just returned from repeat MRI. States he thinks he is back to 85%. His is in the room and she thinks he had a stroke and fell because this is the same thing that happened the last time he had a TIA. denies CP, SOB, abdominal pain, +shoulder and knee pain Objective Date Time Temp Pulse Resp B/P (MAP) Pulse Ox O2 Delivery O2 Flow Rate FiO2 03/19/17 15:05 36.5 65 19 108/68 (81) 98 Room Air 03/19/17 12:00 36.4 55 20 135/79 (97) 93 Room Air 03/19/17 12:00 97 Room Air 03/19/17 08:07 36.4 50 18 152/90 (110) 99 Room Air 03/19/17 08:00 97 Room Air 03/19/17 04:12 36.4 52 16 114/62 (79) 97 Room Air 03/19/17 04:00 Room Air 03/19/17 00:01 Room Air 03/18/17 23:13 36.9 64 18 105/63 (77) 97 Room Air 03/18/17 20:00 Room Air 03/18/17 18:42 36.5 46 18 147/68 (94) 96 Room Air no new labs Imaging: MRI brain without- No acute intracranial findings. No evidence of intracranial mass. No evidence of acute or subacute infarction. Exam: Physical Exam: Constitutional: appearance nourished, healthy and normal Ears, Nose, Mouth and Throat: mucous membranes moist, no injection and skin normal, eyes normal Cardiovascular: normal S-1 and S-2 and regular rate and rhythm Respiratory: normal respiratory effort Musculoskeletal: no peripheral edema Skin: no stigmata of neurocutaneous disease noted and normal and intact Eyes: extraocular muscles intact (EOMI) and pupils equal, round and reactive to light (PERRL) NEUROLOGIC EXAMINATION: Mental status: Alert and interactive Oriented to full date and location Oriented to person Speech fluent with no evidence of aphasia Cranial Nerves smile eye brow raise symmetric, tongue midline Reflexes: Deep tendon reflexes were symmetrical and graded 2/5. Plantar responses were flexor. Sensory: light touch intact Coordination: finger to nose with no bi pass Gait/Stance: Posture normal. Gait normal: with steady with steps, base, turning tandem gait. Motor: Negative for pronator drift of out stretched arms with eyes closed. 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 hip flex 5/5 bilaterally Current Inpatient Medications Medications (Trade) Dose Ordered Sig/Ian Route Start Time Stop Time Status Last Admin Dose Admin Ioversol (Optiray 320) 125 ml UD PRN IV 03/16/17 10:45 03/20/17 10:44 Albuterol (Ventolin Hfa Inhaler) 2 puffs Q6H PRN INH 03/16/17 12:00 04/15/17 11:59 Albuterol Sulfate (Ventolin 0.083% 2.5MG/3ML Neb) 2.5 mg Q6R PRN INH 03/16/17 12:00 04/15/17 11:59 Aspirin (Ecotrin Tab) 325 mg QAM PO 03/17/17 09:00 04/16/17 08:59 03/19/17 09:05 325 MG Clopidogrel Bisulfate (plAVix TAB) 75 mg QAM PO 03/17/17 09:00 04/16/17 08:59 10/26/17 09:05 75 MG Fluticasone Propionate (Flovent Hfa 44MCG Inhaler) 2 puffs BID INH 03/16/17 21:00 04/15/17 20:59 03/19/17 08:05 2 PUFFS Acetaminophen (Tylenol Tab) 650 mg Q6H PRN PO 03/16/17 21:30 04/15/17 21:29 03/18/17 21:18 650 MG Impression 61 year old male fall from 20 feet and left sided weakness Plan 1. EEG- no seizure activity 2. plavix 75 mg and aspirin 81 mg x 3 months and then stop plavix and continue aspirin 81 mg life time 3. permissive and then HTN, DL optimize 4. MRI brain no radiographic evidence of stroke- 5. TTE unremarkable 6. PT/OT speech for discharge needs 7 repeat MRI negative for stroke 8. out patient 72 hours EEG and cardonet 9. neurology in 3-4 weeks Carmenza PAYTON schedule I have discussed above patient with Dr Carmenza Waldron, neurology Discussed with Dr Allen. MRI repeat nothing that explains sx. Query imaging neg infarct query sz with post-ictal paralysis. Due to loc at onset, no driving , ambulatory eeg and ziopatch as outpt. risk factor mod, GALE Waldron MD
--- NOTE | 2017-03-19 19:34 | Progress Note ---
Medicine Progress Note Date & Time of Visit: Mar 19, 2017 at 18:50 . Subjective Doing well. No headache, LOS, presyncope. Left upper extremity weakness essentially resolved. Left lower extremity weakness back to baseline. Ambulating without difficulty. No chest pain, SOB. Intermittent sinus bradycardia on telemetry, usually while sleeping. . Objective Last 8 Hrs Date Time Temp Pulse Resp B/P (MAP) Pulse Ox O2 Delivery O2 Flow Rate FiO2 03/19/17 16:00 Room Air 03/19/17 15:05 36.5 65 19 108/68 (81) 98 Room Air 03/19/17 12:00 36.4 55 20 135/79 (97) 93 Room Air 03/19/17 12:00 97 Room Air Physical Exam: General- no distress Neck- no JVD Lungs- clear Heart- regular Abdomen- normal bowel sounds, soft, nontender Extremities- no pretibial edema or calf tenderness Neuro- alert, oriented; PERRL, EOMI; no facial palsy; no dysarthria; left pronator drift resolved; left handgrip 5/5; left hip flexion 4.5/5 . Assessment & Plan FALL / LOSS OF CONSCIOUSNESS Underlying etiology of fall uncertain. Loss of consciousness may have led to the fall; alternatively, loss of consciousness may been secondary to closed head injury from the fall. Initially there was a question that patient may have suffered a cardiac arrest, but that seems very unlikely. One second hand history indicated that a couple chest compressions were performed; another that patient awoke with sternal rub. No acute vascular event or intracranial hemorrhage per neuroimaging by CT or MRI x 2. No significant arrhythmias noted on cardiac monitoring (only sinus bradycardia, usually while sleeping). Low clinical suspicion for pulmonary embolism. Cardiac markers negative. No evidence of volume depletion, sepsis, etc. Seen by Neurology in consultation. EEG negative. Outpatient cardiac event monitor and ambulatory EEG anticipated. Patient advised not to drive or climb ladders until OK with Neuro. LEFT-SIDED WEAKNESS Chronic weakness left lower extremity secondary to lumbar disc disease. Worsening weakness left lower extremity and new weakness left upper extremity after fall. Seen by Neurology. No acute vascular event or intracranial hemorrhage per neuroimaging by CT or MRI x 2. Antiplatelet therapy recommended- ASA + clopidogrel x 3 months, then termination clerk clopidogrel Received PT / OT. Motor strength essentially back to baseline. SHOULDER PAIN Plain films did not show any fracture or dislocation. Ortho consulted. May have sprain or rotator cuff injury. Received OT, passive ROM. Outpatient follow-up with Ortho. May need MRI if pain does not improve. CARDIOMEGALY Cardiomegaly noted on chest x-ray as well as vascular prominence. CT chest showed mild nonspecific interstitial prominence. Echo showed mild LVH, LVEF 55-60%j. No clinical signs / symptoms of CHF. COPD Stable. VTE PROPHYLAXIS No anticoagulants due to trauma. SCD's utilized. Ambulating. DISPOSITION Discharge to home. Medical follow-up with Dr. Renner. Neurology follow-up with Carmenza Hunter PA-C and Dr. Waldron. Ortho follow-up with Dr. Shah. . Current Inpatient Medications: Current Inpatient Medications Medications (Trade) Dose Ordered Sig/Ian Route Start Time Stop Time Status Last Admin Dose Admin Ioversol (Optiray 320) 125 ml UD PRN IV 03/16/17 10:45 03/20/17 10:44 Albuterol (Ventolin Hfa Inhaler) 2 puffs Q6H PRN INH 03/16/17 12:00 04/15/17 11:59 Albuterol Sulfate (Ventolin 0.083% 2.5MG/3ML Neb) 2.5 mg Q6R PRN INH 03/16/17 12:00 04/15/17 11:59 Aspirin (Ecotrin Tab) 325 mg QAM PO 03/17/17 09:00 04/16/17 08:59 03/19/17 09:05 325 MG Clopidogrel Bisulfate (plAVix TAB) 75 mg QAM PO 03/17/17 09:00 04/16/17 08:59 03/19/17 09:05 75 MG Fluticasone Propionate (Flovent Hfa 44MCG Inhaler) 2 puffs BID INH 03/16/17 21:00 04/15/17 20:59 03/19/17 19:19 2 PUFFS Acetaminophen (Tylenol Tab) 650 mg Q6H PRN PO 03/16/17 21:30 04/15/17 21:29 03/18/17 21:18 650 MG
[2017-03-19] MEDS ORDERED: ASPEC81 PO (19:39)
[2017-03-19] MEDS ORDERED: PLV75 PO (19:39)
--- NOTE | 2017-03-19 19:51 | Discharge Instructions ---
Discharge Instructions Date of Service Mar 19, 2017. Admission Reason for Admission: fall, loss of consciousness . Discharge Discharge Diagnosis / Problem: fall, loss of consciousness Discharge Goals Goal(s): Decrease discomfort, Improve function, Increase independence, Improve disease control Activity Recommendations Activity Limitations: as noted below Lifting Limitations: gradually increase as tolerated Driving or Machine Use: no driving or ladder climbing until approved by Neurology . Instructions / Follow-Up Instructions / Follow-Up FOLLOW-UP APPOINTMENTS: PRIMARY CARE: 04/10/2017 5:00 PM Demetrius Renner MD [office will try to find an earlier appointment for you] NEUROLOGY Carmenza Hunter PA-C or Dr. Waldron. Office will contact you with appointment. ORTHOPEDICS Dr. Shah [address], [address] [place], [place] [id number] Please call his office for an appointment in about 2 weeks. OTHER INSTRUCTIONS: Gently move arms in all directions several times a day so that yours shoulders don't get stiff. Physical Therapy and Occupational Therapy. New medications: coated aspirin (Ecotrin) 81 mg daily long-term clopidogrel (Plavix) 75 mg daily for [address] Renner check your cholesterol level. Neurology office will arrange for outpatient cardiac monitoring and ambulatory EEG. Seek medical attention if you have: * temperature above 101 * chest pain or trouble breathing * abdominal pain, nausea, vomiting * diarrhea, dark stools or bloody stools * headache, trouble with vision, weakness in arms or legs, trouble walking * any unanswered questions or concerns Call 911 if symptoms are severe. Call if you have any questions or problems. My cell # is [phone]. You can also reach a [facility] hospitalist on duty at [facility] 24 hours a day by calling [phone]. Please take good care of yourself. Darren Allen . Current Hospital Diet Patient's current hospital diet: Regular Diet Discharge Diet Recommended Diet: AHA Diet (Heart Healthy) Procedures Procedures Performed: CT head- no sign of stroke MRI brain- no sign of stroke EEG- no sign of seizure activity x-ray shoulder- no sign of fracture or dislocation Pending Studies Studies pending at discharge: no Work Instructions Return To Work: after follow-up Additional Instructions: Jose Tang was absent from work the week of 03/16/17 due to illness. Return to work date to be determined. Medical Emergencies . Who to Call and When: Medical Emergencies: If at any time you feel your situation is an emergency, please call 911 immediately. . Non-Emergent Contact Non-Emergency issues call your: Primary Care Provider, Hospital Doctor, Neurologist . . "Provider Documentation" section prepared by Darren Allen. . VTE Core Measure Inpt VTE Proph given/why not?: SCD's
[2017-03-19 20:16] VITALS: BP 108/68; PULSE 65; TEMP 36.5; O2SAT 98
--- NOTE | 2017-03-20 07:06 | Discharge Summary ---
Discharge Summary Date of Service Mar 20, 2017. Discharge Summary Admission Date: Mar 16, 2017 at 11:58 Discharge Date: Mar 19, 2017 Discharge Disposition: Home Principal Diagnosis: loss of consciousness, etiology unknown fall from ladder left-sided weakness, resolved - no evidence of stroke per neuroimaging bilateral shoulder injuries without apparent dislocation / fracture . Secondary Diagnoses/Problems: Chronic and Resolved Medical Problems: (1) Cholelithiasis Permanent Comment: incidental finding CT abdomen and pelvis [facility] 03/16/17 Status: Chronic (2) COPD (chronic obstructive pulmonary disease) Status: Chronic (3) GERD (gastroesophageal reflux disease) Status: Chronic (4) Low back pain Status: Chronic (5) Stroke Status: Resolved (6) Urinary calculi Permanent Comment: incidental finding CT abdomen and pelvis [facility] 03/16/17 Status: Chronic . Procedures: CT head CT cervical spine CT chest CT abdomen & pelvis CTA chest MRI brain x 2 echocardiogram cardiac monitoring IV fluids PT OT . Consultations: Neurology with Dr. Waldron and Carmenza Hunter PA-C. . Pending Studies/Follow-Up: Please check fasting lipid profile in clinic. Outpatient pvc monitor and ambulatory EEG to be arranged by Neurology. . Medication Reconciliation New Medications: Aspirin (Aspirin EC Low Dose) 81 Mg Ectab 81 MG PO DAILY, #30 TAB no prescription necessary Clopidogrel Bisulfate (Clopidogrel) 75 Mg Tab 75 MG PO DAILY, #30 TAB 2 Refills Continued Medications: Acetaminophen (Tylenol) 325 Mg Tab 650 MG PO UD PRN for Pain, TAB PER , PT HAD PREVIOUS BACK SURGERY. ALTERNATES BETWEEN TYLENOL & ADVIL FOR PAIN Albuterol Hfa (Ventolin Hfa) 200 Puffs/63365 Mcg Aers 2-4 PUFFS INH Q6H PRN for SOB/Wheezing, #1 INHALER Ibuprofen (Advil) 200 Mg Tab 1 DOSE PO UD PRN for Pain, TAB PER , PT HAD PREVIOUS BACK SURGERY. ALTERNATES BETWEEN TYLENOL & ADVIL FOR PAIN Admission Information HPI (per Admitting provider): He is a 61-year-old male with significant past medical history of diastolic dysfunction, on no medications; history of COPD, seems to be controlled; and esophageal reflux. He apparently went to work this morning. He does not take any medications except aspirin occasionally and at workplace, he was noted to be unresponsive. The history is not totally clear from the patient. He mentioned that he had a fall and then he lost consciousness and information from the EMS record , the patient was unconscious and somebody did check the pulse for him and at that time, he was noted to be pulseless, not breathing and he got 2 chest compressions. With that, he woke up. EMS en route found him to be in and out of consciousness, at times talking, and at times not talking, but when he was brought to the Emergency Room, he was very lethargic and weak. He was still conversant and he was noted to have left-sided weakness without any facial asymmetry. He was hemodynamically stable and most of the investigations including CAT scan of the head, CT of the neck, CT of the head, CAT scan of the chest, CT of the abdomen and pelvis, EKG, and blood work, everything came out to be unremarkable, but given the history of ongoing drowsiness and fluctuations in the level of consciousness and left-sided weakness, he was admitted to telemetry unit. Before that, the [facility] consulted for probable stroke and it was decided that the patient is not a candidate for TPA at this time. . Physical Exam (per Admitting): GENERAL: On examination in the Emergency Room, he was not having any acute distress, but he was very drowsy and lethargic. VITAL SIGNS: Pulse was 63, blood pressure 159/83, and saturation 98% on room air. HEENT: Unremarkable. NECK: Supple. No JVD. No bruit. There is no facial asymmetry. CHEST: Clear to auscultation bilaterally with decreased breath sounds. HEART: S1 and S2 regular. ABDOMEN: Soft, benign, and nontender. No organomegaly. Bowel sounds present. EXTREMITIES: Negative for any edema. MUSCULOSKELETAL: Examination of the musculoskeletal system did show tenderness involving the right shoulder area, but no other acute joint process. CENTRAL NERVOUS SYSTEM: He is alert and awake. He is very drowsy. Talking slowly and taking some time. No facial asymmetry. He does have some weakness involving the left-sided extremities, but right side seems to be with full power. His plantar is equivocal on the left side and right side seems to be withdrawing. DTRs are difficult to elicit. . Hospital Course FALL / LOSS OF CONSCIOUSNESS Underlying etiology of fall uncertain. Loss of consciousness may have led to the fall; alternatively, loss of consciousness may been secondary to closed head injury from the fall. Initially there was a question that patient may have suffered a cardiac arrest, but that seems very unlikely. One second hand history indicated that a couple chest compressions were performed; another that patient awoke with sternal rub. No acute vascular event or intracranial hemorrhage per neuroimaging by CT or MRI x 2. No significant arrhythmias noted on cardiac monitoring (only sinus bradycardia, usually while sleeping). Low clinical suspicion for pulmonary embolism. Cardiac markers negative. No evidence of volume depletion, sepsis, etc. Seen by Neurology in consultation. EEG negative. Outpatient cardiac event monitor and ambulatory EEG anticipated. Patient advised not to drive or climb ladders until OK with Neuro. LEFT-SIDED WEAKNESS Chronic weakness left lower extremity secondary to lumbar disc disease. Worsening weakness left lower extremity and new weakness left upper extremity after fall. Seen by Neurology. No acute vascular event or intracranial hemorrhage per neuroimaging by CT or MRI x 2. 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 Motor strength essentially back to baseline. SHOULDER PAIN Plain films did not show any fracture or dislocation. Ortho consulted. May have sprain or rotator cuff injury. Received OT, passive ROM. Outpatient follow-up with Ortho. May need MRI if pain does not improve. CARDIOMEGALY Cardiomegaly noted on chest x-ray as well as vascular prominence. CT chest showed mild nonspecific interstitial prominence. Echo showed mild LVH, LVEF 55-60%j. No clinical signs / symptoms of CHF. COPD Stable. VTE PROPHYLAXIS No anticoagulants due to trauma. SCD's utilized. Ambulating. DISPOSITION Discharge to home. Medical follow-up with Dr. Renner. Neurology follow-up with Carmenza Hunter PA-C and Dr. Waldron. Ortho follow-up with Dr. Shah. . Total time spent on discharge = 40 min. This includes examination of the patient, discharge planning, medication reconciliation, and communication with other providers. . Discharge Instructions Date of Service Mar 19, 2017. Admission Reason for Admission: fall, loss of consciousness . Discharge Discharge Diagnosis / Problem: fall, loss of consciousness Discharge Goals Goal(s): Decrease discomfort, Improve function, Increase independence, Improve disease control Activity Recommendations Activity Limitations: as noted below Lifting Limitations: gradually increase as tolerated Driving or Machine Use: no driving or ladder climbing until approved by Neurology . Instructions / Follow-Up Instructions / Follow-Up FOLLOW-UP APPOINTMENTS: PRIMARY CARE: 04/10/2017 5:00 PM Demetrius Renner MD [office will try to find an earlier appointment for you] NEUROLOGY Carmenza Hunter PA-C or Dr. Waldron. Office will contact you with appointment. ORTHOPEDICS Dr. Shah [address], [address] [place], [place] [id number] Please call his office for an appointment in about 2 weeks. OTHER INSTRUCTIONS: Gently move arms in all directions several times a day so that yours shoulders don't get stiff. Physical Therapy and Occupational Therapy. New medications: coated aspirin (Ecotrin) 81 mg daily long-term clopidogrel (Plavix) 75 mg daily for [address] Renner check your cholesterol level. Neurology office will arrange for outpatient cardiac monitoring and ambulatory EEG. Seek medical attention if you have: * temperature above 101 * chest pain or trouble breathing * abdominal pain, nausea, vomiting * diarrhea, dark stools or bloody stools * headache, trouble with vision, weakness in arms or legs, trouble walking * any unanswered questions or concerns Call 911 if symptoms are severe. Call if you have any questions or problems. My cell # is [phone]. You can also reach a [facility] hospitalist on duty at [facility] 24 hours a day by calling [phone]. Please take good care of yourself. Darren Allen . Current Hospital Diet Patient's current hospital diet: Regular Diet Discharge Diet Recommended Diet: AHA Diet (Heart Healthy) Procedures Procedures Performed: CT head- no sign of stroke MRI brain- no sign of stroke EEG- no sign of seizure activity x-ray shoulder- no sign of fracture or dislocation Pending Studies Studies pending at discharge: no Work Instructions Return To Work: after follow-up Additional Instructions: Jose Tang was absent from work the week of 03/16/17 due to illness. Return to work date to be determined. Medical Emergencies . Who to Call and When: Medical Emergencies: If at any time you feel your situation is an emergency, please call 911 immediately. . Non-Emergent Contact Non-Emergency issues call your: Primary Care Provider, Hospital Doctor, Neurologist . . "Provider Documentation" section prepared by Darren Allen. . VTE Core Measure Inpt VTE Proph given/why not?: SCD's . Additional Copies To Carmenza Hunter PA-C; Demetrius Renner M.D.; Carmenza Waldron M.D.
== END 2017-03-19 20:37 | disposition home or self-care (01) | DRG 83 ==
LOC: C.EDA 08:50 → C.2T 11:58 → ENRESERV 12:18 → C.2T 03-18 20:08
PROVIDERS: ADMIT Internal Medicine; ATTEND Hospitalist
DX: S06.9X9A Unspecified intracranial injury with loss of consciousness of unspecified duration, initial encounter (principal); G81.94 Hemiplegia, unspecified affecting left nondominant side; Z86.73 Personal history of transient ischemic attack (TIA), and cerebral infarction without residual deficits; J44.9 Chronic obstructive pulmonary disease, unspecified; M51.86 Other intervertebral disc disorders, lumbar region; S43.421A Sprain of right rotator cuff capsule, initial encounter; H40.9 Unspecified glaucoma; S43.422A Sprain of left rotator cuff capsule, initial encounter; K21.9 Gastro-esophageal reflux disease without esophagitis; Y92.79 Other farm location as the place of occurrence of the external cause; Y93.H9 Activity, other involving exterior property and land maintenance, building and construction; Z86.74 Personal history of sudden cardiac arrest; K80.20 Calculus of gallbladder without cholecystitis without obstruction; R29.700 NIHSS score 0; W11.XXXA Fall on and from ladder, initial encounter